=== PATIENT | female | born 1965 | race Caucasian/White ===

== ENCOUNTER → 2017-03-20 | Outpatient (CLI) | payer MEDICARE ==
[~2017-03-20] MED LIST: ACET1TAB12 PO; ACET325T49 PO; ACHD5005 PO; ACID1TAB PO; ACYC400T PO; ALBU2.5V4 IH; ALBU8.5H2 IH; ALPR0.2550 PO; ALPR0.5T7 PO; AMIT25TA9 PO; AMOX500C2 PO; AMT10T PO; ASP325T PO; ASP81CT PO; ASPI-587 PO; BENZ100C18 PO; BUDE10.22 IH; BUTA1TAB46 PO; CEFU500T PO; CEFU500T63 PO; CLOB15OI2 TOP; CODE118S2 PO; CRAN1CAP7 PO; CRAN450C PO; CYCL10TA9 PO; ESCI20TA45 PO; ESCI5TAB PO; ESTROVEN; FAMO20TA5 PO; FENO145T2 PO; FLUO20CA25 PO; FLUT1DIS26 IH; HCT25T PO; HYDR-2997 PO; HYDR-3583 PO; HYDR-3729 PO; HYDR25CA5 PO; HYDR25TA4 PO; IBP800T PO; LD5O35 TOP; LEVO500T2 PO; LEVO500T69 PO; LINA290C PO; LISI10TA2; LISI10TA2 PO; LISI20TA PO; LISI40TA PO; METH4TAB PO; METO-272 PO; MNTL10T PO; MPR22T TP; MTF500T; MULT-974 PO; MULT1CAP27 PO; MYCO500T3 PO; NAPR-243 PO; NIAC1CAP PO; NITR-65 PO; OMEG-9 PO; OMEP-10 PO; OMEP20CA12 PO; OMEP40CA36 PO; ONDA-42 SL; ONDA4TAB10 PO; ONDAN4ODT PO; OXYC-12 PO; OXYC-465 PO; PAMA50TA PO; PANT40TA3 PO; PRD20T PO; PRED5TAB PO; PRM25T PO; RT-ALBUINH IH; SCR1T1 PO; SIMV20TA3 PO; SULF-222 PO; TACR30OI4 TOP; TRAM-21 PO; TRAM50TA2 PO; TRUBIOTICS PO; VITA100033 PO; ZLP10T PO; ZOLP5TAB7 PO
--- NOTE | 2017-03-20 17:38 | Diagnostic Imaging Report ---
Multiple views of the right shoulder. INDICATION: Right shoulder pain. FINDINGS: There is no fracture, dislocation, or radiopaque foreign body seen. The acromioclavicular joint demonstrates osteophyte formation superiorly. No degenerative changes at the glenohumeral joint seen. IMPRESSION: No acute process. Dictated by: Dictated on workstation # [id number]
== END ==
LOC: RAD 15:07
PROVIDERS: ATTEND Nurse Practitioner Family
DX: M25.511 Pain in right shoulder (principal)
CPT/HCPCS: 73030

== ENCOUNTER 2017-04-04 20:57 | Emergency (ER) | payer MEDICARE ==
[~2017-04-04] VITALS: Ht 165.1 cm; Wt 111.6 kg
[2017-04-04] MEDS ORDERED: MORP-34 (21:25)
[2017-04-04] MEDS ORDERED: NS IV 1000 ML 1,000 ML IV ONE (21:37)
[2017-04-04] MEDS ORDERED: KETOROLAC 30 MG/ML VIAL ONE (21:41)
[2017-04-04] MEDS ORDERED: [UNRECOGNIZED DRUG - OTHER] (21:45)
[2017-04-04] MEDS ORDERED: KETOROLAC 15 MG/ML VIAL IVP ONE (21:45)
[2017-04-04] MEDS ORDERED: PROCHLORPERAZINE 10 MG/2ML INJ (COMPAZINE) IV ONE (21:45)
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
[2017-04-04 22:14] LABS: BASOPHILS % (AUTO) 0 % (0-10); EOSINOPHILS % (AUTO) 0 % (0-10); LYMPHOCYTES # (AUTO) 1.9 X 10^3 (1.0-4.0); LYMPHOCYTES % (AUTO) 23 % (12-44); MEAN CORPUSCULAR HEMOGLOBIN 27 PG (25-34); MEAN CORPUSCULAR HGB CONC 33 G/DL (32-36); MEAN CORPUSCULAR VOLUME 83 FL (80-99); MEAN PLATELET VOLUME 9.2 FL (7.4-10.4); MONOCYTES # (AUTO) 0.4 X 10^3 (0.0-1.0); MONOCYTES % (AUTO) 4 % (0-12); NEUTROPHILS # (AUTO) 6.1 X 10^3 (1.8-7.8); NEUTROPHILS % (AUTO) 73 % (42-75); PLATELET COUNT 464 10^3/uL (130-400); RED BLOOD COUNT 5.72 10^6/uL (4.35-5.85); RED CELL DISTRIBUTION WIDTH 13.6 % (10.0-14.5); WHITE BLOOD COUNT 8.4 10^3/uL (4.3-11.0)
[2017-04-04 22:24] LABS: BILIRUBIN,URINE NEGATIVE (NEGATIVE); KETONES,URINE NEGATIVE (NEGATIVE); LEUKOCYTE ESTERASE ,URINE 1+ (NEGATIVE); NITRITE,URINE NEGATIVE (NEGATIVE); PH,URINE 6.5 (5-9); PROTEIN,URINE 4+ (NEGATIVE); UROBILINOGEN,URINE NORMAL (NORMAL)
[2017-04-04 22:27] LABS: ALANINE AMINOTRANSFERASE 50 U/L (0-55); ALBUMIN 4.8 GM/DL (3.2-4.5); ANION GAP 16 MMOL/L (5-14); ASPARTATE AMINO TRANSFERASE 25 U/L (5-34); BILIRUBIN,TOTAL 0.7 MG/DL (0.1-1.0); BLOOD UREA NITROGEN 15 MG/DL (7-18); BUN/CREATININE RATIO 21; CALCIUM 11.1 MG/DL (8.5-10.1); CARBON DIOXIDE 23 MMOL/L (21-32); CHLORIDE 102 MMOL/L (98-107); CREATININE SERUM 0.71 MG/DL (0.60-1.30); GFR ESTIMATED > 60; GLUCOSE 127 MG/DL (70-105); LIPASE 13 U/L (8-78); MAGNESIUM 1.9 MG/DL (1.8-2.4); POTASSIUM 3.8 MMOL/L (3.6-5.0); SODIUM 141 MMOL/L (135-145); TOTAL PROTEIN 8.6 GM/DL (6.4-8.2)
[2017-04-04] MEDS ORDERED: METOCLOPRAMIDE INJ 10 MG/2 ML (REGLAN) IVP ONE (23:00)
[2017-04-04] MEDS ORDERED: KETOROLAC 30 MG/ML VIAL IVP ONE ×2 (23:00→23:30)
[2017-04-04] MEDS ORDERED: DEXAMETHASONE 4 MG/ML SDV (DECADRON) IV ONE (23:00)
[2017-04-04] MEDS ORDERED: diphenhydrAMINE 50 MG/ML INJ (BENADRYL) IVP ONE (23:00)
[2017-04-04] MEDS ORDERED: ACETAMINOPHEN 500 MG TAB (TYLENOL) PO ONE (23:00)
[2017-04-05] MEDS ORDERED: PROM25TA14 PO (00:25)
[2017-04-05 00:32] VITALS: BP 167/100
--- OUTSIDE RECORDS SUMMARY | 2017-04-05 04:17 | XMS REPORT | Clinical Summary ---
Author Author [facility] Organization [facility] Address Unknown Phone Unavailable Care Team Providers Care Claims Customer Service Representative Name Role Phone PCP Unavailable Source Comments Some departments are not documenting in the electronic medical record. If you do not see the information that you expected, contact Release of Information in the Health Information Management department at [phone] for further assistance in locating additional records.[facility] Allergies Active Allergy Reactions Severity Noted Date Comments Zolpidem HALLUCINATIONS High 07/13/2015 Adhesive Tape (Rosins) SEE COMMENTS Low 04/27/2015 Like a chemical burn, but able to use tegaderm Venom-Honey Bee SEE COMMENTS Low 03/30/2015 Paralysis Clindamycin DIARRHEA Low 11/17/2015 Rectal bleeding Tetracycline SEE COMMENTS Low 03/30/2015 " Started with hives and then I was in a coma for 10 days" ALL CYCLINES Current Medications Prescription Sig. Disp. Refills Start End Date Status Date amitriptyline (ELAVIL) 25 Take 25 mg by mouth at Active mg tablet bedtime daily. linaclotide(+) (LINZESS) Take 290 mcg by mouth Active 290 mcg capsule daily 30 minutes before breakfast. escitalopram oxalate Take 20 mg by mouth Active (LEXAPRO) 20 mg tablet daily. Vitamin C-Vitamin E Take 1 Cap by mouth Active (CRANBERRY CONCENTRATE) daily. cap vitamin E 100 unit Take 100 Units by mouth Active capsule daily. ALPRAZolam (XANAX) 0.5 mg Take 0.5 mg by mouth at Active tablet bedtime as needed. ondansetron (ZOFRAN ODT) Take by mouth every 8 Active 4 mg rapid dissolve hours as needed for tablet Nausea. oxyCODONE-acetaminophen Take 1 Tab by mouth every Active (PERCOCET) 10-325 mg 4 hours as needed tablet docusate (COLACE) 100 mg Take 100 mg by mouth Active capsule twice daily as needed for Constipation. tacrolimus(+) (PROTOPIC) Apply to affected area Active 0.1 % topical ointment three times daily. Twice a day every other day. metoprolol (LOPRESSOR) 25 Take 25 mg by mouth twice Active mg tablet daily. lisinopril (PRINIVIL, Take 40 mg by mouth Active ZESTRIL) 40 mg tablet daily. clobetasol (TEMOVATE) APPLY TO AFFECTED AREA 60 g 3 08/25/20 Active 0.05 % topical ointment TWICE DAILY. APPLY TO 15 OPEN WOUNDS EVERY OTHER DAY ALTERNATING WITH TACROLIMUS melatonin 3 mg tab Take 3 mg by mouth as Active Needed. 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 Take on an 17 empty stomach. lidocaine(+) 5 % oint APPLY OINTMENT 50 g 3 02/14/20 Active topical ointment EXTERNALLY TWICE DAILY 17 Active Problems Problem Noted Date Adenomatous polyp of duodenum 10/01/2015 Overview: Next EGD in 3 years, 2019 (letter sent to pt and PCP, Manisha Escobar MD) Irritable bowel syndrome 07/04/2015 Pyoderma gangrenosum 07/04/2015 Depression 07/04/2015 Anxiety 07/04/2015 HTN (hypertension) 07/04/2015 Resolved Problems Problem Noted Date Resolved Date Fever of unknown origin 07/04/2015 07/06/2015 Nausea vomiting and diarrhea 07/04/2015 07/06/2015 Fever of unknown origin (FUO) 07/04/2015 07/06/2015 Encounters Date Type Specialty Care Team Description 02/13/2017 Refill Dermatology Johan Harrington MD 01/18/2017 Hospital Johan Harrington Other 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) Encounter drug therapy 01/18/2017 Office Visit Dermatology Johan Harrington, Encounter for long-term MD (current) use of medications (Primary Dx);Pyoderma gangrenosum from Last 3 Months Family History Medical History Relation Name Comments Melanoma Father Melanoma Maternal Grandmother Basal Cell Carcinoma Mother Relation Name Status Comments Father Maternal Grandmother Mother Social History Tobacco Use Types Packs/Day Years Used Date Never Smoker Sex Assigned at Date Recorded Not on file Last Filed Vital Signs Vital Sign Reading Time Taken Blood Pressure 114/59 11/23/2015 3:28 PM CDT Pulse 73 11/23/2015 3:28 PM CDT Temperature 37.2 C (98.9 F) 11/17/2015 10:21 AM CDT Respiratory Rate 16 11/17/2015 10:21 AM CDT Oxygen Saturation 93% 11/23/2015 3:28 PM CDT Inhaled Oxygen - - Concentration Weight 112 kg (247 lb) 01/18/2017 10:26 AM CDT Height 162.6 cm (5' 4") 01/18/2017 10:26 AM CDT Body Mass Index 42.4 01/18/2017 10:26 AM CDT Plan of Treatment Health Maintenance Due Date Last Done Comments PHYSICAL (COMPREHENSIVE) 1974 EXAM PERTUSSIS VACCINE 1978 TETANUS VACCINE 1984 CERVICAL CANCER SCREENING 1997 BREAST CANCER SCREENING 2007 INFLUENZA VACCINE 04/28/2017 Results * CBC AND DIFF (01/18/2017 11:18 AM) Component Value Ref Range White Blood Cells 6.3 4.5 - 11.0 K/UL RBC 5.14 (H) 4.0 - 5.0 M/UL Hemoglobin 14.1 12.0 - 15.0 GM/DL Hematocrit 42.3 36 - 45 % MCV 82.3 80 - 100 FL MCH 27.4 26 - 34 PG MCHC 33.2 32.0 - 36.0 G/DL RDW 14.1 11 - 15 % Platelet Count 345 150 - 400 K/UL MPV 7.5 7 - 11 FL Neutrophils 41 41 - 77 % Lymphocytes 49 (H) 24 - 44 % Monocytes 8 4 - 12 % Eosinophils 2 0 - 5 % Basophils 0 0 - 2 % Absolute Neutrophil Count 2.60 1.8 - 7.0 K/UL Absolute Lymph Count 3.10 1.0 - 4.8 K/UL Absolute Monocyte Count 0.50 0 - 0.80 K/UL Absolute Eosinophil Count 0.10 0 - 0.45 K/UL Absolute Basophil Count 0.00 0 - 0.20 K/UL Specimen Performing Laboratory [facility] [address] [place] [address] * COMPREHENSIVE METABOLIC PANEL (01/18/2017 11:18 AM) Component Value Ref Range Sodium 137 137 - 147 MMOL/L Potassium 3.9 3.5 - 5.1 MMOL/L Chloride 100 98 - 110 MMOL/L Glucose 100 70 - 100 MG/DL Blood Urea Nitrogen 10 7 - 25 MG/DL Creatinine 0.56 0.4 - 1.00 MG/DL Calcium 9.8 8.5 - 10.6 MG/DL Total Protein 7.1 6.0 - 8.0 G/DL Total Bilirubin 0.5 0.3 - 1.2 MG/DL Albumin 4.2 3.5 - 5.0 G/DL Alk Phosphatase 83 25 - 110 U/L AST (SGOT) 20 7 - 40 U/L CO2 28 21 - 30 MMOL/L ALT (SGPT) 28 7 - 56 U/L Anion Gap 9 3 - 12 eGFR Non >60 >60 mL/min Comment: The eGFR is not validated for use in drug dosing adjustments. Continue to use estimated creatinine clearance per dosing reference text. Please contact the Clinical Pharmacist for questions. eGFR >60 >60 mL/min Comment: The eGFR is not validated for use in drug dosing adjustments. Continue to use estimated creatinine clearance per dosing reference text. Please contact the Clinical Pharmacist for questions. Specimen Performing Laboratory [facility] [address] [place] [address] from Last 3 Months
--- OUTSIDE RECORDS SUMMARY | 2017-04-05 04:17 | XMS REPORT | Encounter Summary ---
Author Author [facility] Organization [facility] Address Unknown Phone Unavailable Care Team Providers Care Log Cooker Name Role Phone PCP Unavailable Reason for Visit * Reason Comments Medication Refill Encounter Details Date Type Department Care Team Description 02/13/2017 Refill [facility] Johan Harrington, Physicians - Internal MD Medicine [address] [place] [address] [address] [phone] [place] [address] Social History Tobacco Use Types Packs/Day Years Used Date Never Smoker Sex Assigned at Date Recorded Not on file as of this encounter Functional Status Functional Status Response Date of Assessment Does the patient have a hearing impairment: No 07/04/2015 as of this encounter Plan of Treatment Not on fileas of this encounter Visit Diagnoses Not on filein this encounter
--- OUTSIDE RECORDS SUMMARY | 2017-04-05 04:17 | XMS REPORT | Encounter Summary ---
Author Author [facility] Organization [facility] Address Unknown Phone Unavailable Care Team Providers Care Medical Transcription Supervisor Name Role Phone PCP Unavailable Reason for Visit * Reason Comments Skin Problem Encounter Details Date Type Department Care Team Description 01/18/2017 Office Visit [facility] Johan Harrington, Encounter for long-term Physicians - Internal MD (current) use of Medicine [address] medications (Primary [address] MED [place] [address] Dx);Pyoderma [place]ren[place] [address] [address] [phone] [place] [address] Social History Tobacco Use Types Packs/Day Years Used Date Never Smoker Sex Assigned at Date Recorded Not on file as of this encounter Last Filed Vital Signs Vital Sign Reading Time Taken Blood Pressure - - Pulse - - Temperature - - Respiratory Rate - - Oxygen Saturation - - Inhaled Oxygen - - Concentration Weight 112 kg (247 lb) 01/18/2017 10:26 AM CDT Height 162.6 cm (5' 4") 01/18/2017 10:26 AM CDT Body Mass Index 42.4 01/18/2017 10:26 AM CDT in this encounter Functional Status Functional Status Response Date of Assessment Does the patient have a hearing impairment: No 07/04/2015 as of this encounter Instructions * Patient Instructions - Tammy Farrell - 01/18/2017 10:40 AM CDT [employer] for coupon for cellcept in this encounter Progress Notes * Johan Harrington MD - 01/18/2017 10:39 AM CDT Formatting of this note may be different from the original. Date of Service: 01/18/2017 Subjective: Ehlam Skaggs is a 51 y.o. female. History of Present Illness Return patient 1. Pyoderma gangranosum Interval history - New lesion on L breast - present for about 3-4 weeks, patient thinks it was a bug bite initially - Currently taking Cellcept 1.5g PO BID -- tolerating well w/o adverse effects - Old lesions are mostly healed - Currently alternating protopic TID and clobetasol TID every other day to all resolving/active lesions - Patient has history of bicep tear- R arm, patient is having pain similar to previous injury and will see orthopedics to assess this pain, patient is worried about having surgery and what this could do with PG hx. 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 Potts in [place], [place] (wound care) - pt reports that several of the lesions are in areas of trauma (pathergy) - pt discharged mid June 2015 for evaluation of fever of unknown origin workup - evaluated by ID and rheumatology who found no source for her fever - though did have positive Bartonella serology, with work up unclear for acute vs. past infection - pt received antibiotics while in house but was discharged home without antibiotics - No hx of TB or other serious infections - No hx of autoimmune diseases such as SLE - has had a full rheumatologic panel which was negative - No hx of liver, kidney, heart or neuro disease including MS - No personal or family hx of malignancy. No weight loss, night sweats - No hx of HIV or Hepatitis B/C. - No recent fever >101 - Pt had colonoscopy which showed no evidence of IBD; currently with a working dx of IBS - CBC, CMP WNL in 03/2016 2. H/o Bartonella infection - resolved per ID - Treated by [facility] with Azithromycin. - patient does have cats at home, though not much history of cat scratches - Bartonella henselae IgM negative in 06/2015 and 08/2015 - Bartonella henselae IgG=1:256 in 06/2015 and >=1:1024 in 08/2015 (RR <1:128) - Evaluation for cardiac and eye involvement were negative per patient. 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 HENT: Negative for congestion, mouth sores and sore throat. Eyes: Negative for pain, redness, itching and visual disturbance. Respiratory: Negative for cough and shortness of breath. Cardiovascular: Negative for palpitations and leg swelling. Gastrointestinal: Negative for nausea, vomiting, abdominal pain, diarrhea and blood in stool. Genitourinary: Negative for hematuria and difficulty urinating. Musculoskeletal: Negative for myalgias and arthralgias. Skin: Negative for color change, pallor, rash and wound. Neurological: Negative for dizziness and seizures. Hematological: Does not bruise/bleed easily. Psychiatric/Behavioral: Negative for confusion and dysphoric mood. The patient is not nervous/anxious. Objective: ALPRAZolam (XANAX) 0.5 mg tablet Take 0.5 mg by mouth at bedtime as needed. amitriptyline (ELAVIL) 25 mg tablet Take 25 mg by mouth at bedtime daily. azithromycin (ZITHROMAX) 250 mg tablet Take 2 tabs by mouth on day 1, followed by 1 tab by mouth daily for 13 days. Indications: Bartonella infection clobetasol (TEMOVATE) 0.05 % topical ointment APPLY TO AFFECTED AREA TWICE DAILY. APPLY TO OPEN WOUNDS EVERY OTHER DAY ALTERNATING WITH TACROLIMUS docusate (COLACE) 100 mg capsule Take 100 mg by mouth twice daily as needed for Constipation. escitalopram oxalate (LEXAPRO) 20 mg tablet Take 20 mg by mouth daily. lidocaine(+) 5 % oint topical ointment APPLY OINTMENT TO AFFECTED AREA TWICE DAILY linaclotide(+) (LINZESS) 290 mcg capsule Take 290 mcg by mouth daily 30 minutes before breakfast. lisinopril (PRINIVIL, ZESTRIL) 40 mg tablet Take 40 mg by mouth daily. melatonin 3 mg tab Take 3 mg by mouth as Needed. metoprolol (LOPRESSOR) 25 mg tablet Take 25 mg by mouth twice daily. morphine IR (MSIR) 15 mg tablet Take 15 mg by mouth every 4 hours as needed for Pain mycophenolate mofetil (CELLCEPT) 500 mg tablet Take 3 Tabs by mouth twice daily. Take on an empty stomach. ondansetron (ZOFRAN ODT) 4 mg rapid dissolve tablet Take by mouth every 8 hours as needed for Nausea. oxyCODONE-acetaminophen (PERCOCET) 10-325 mg tablet Take 1 Tab by mouth every 4 hours as needed tacrolimus(+) (PROTOPIC) 0.1 % topical ointment Apply to affected area three times daily. Twice a day every other day. Vitamin C-Vitamin E (CRANBERRY CONCENTRATE) cap Take 1 Cap by mouth daily. vitamin E 100 unit capsule Take 100 Units by mouth daily. Filed Vitals: 01/18/17 1026 Height: 162.6 cm (64") Weight: 112.038 kg (247 lb) Body mass index is 42.38 kg/(m^2). Physical Exam Areas Examined (all normal unless noted below): Head/Face Neck Chest R upper ext L upper ext R lower ext L lower ext Pertinent findings include: Oval hypopigmented scars on arms, legs, abdomen Superficial 3 cm ulcer on left breast Assessment and Plan: 1. Pyoderma Gangrenosum, much improved - Continue Rx Cellcept 1.5g BID (refill given today) - CMP and CBC ordered today - Continue Protopic 0.1% ointment BID alternating with clobetasol 0.05% ointment BID, can use under occlusion for better penetration - F/U with ortho for Right shoulder pain, try non invasive measures before considering surgery RTC 3 months In the presence of Johan Harrington MD, I have taken down these notes, Kisha Adames. 01/18/2017 10:40 AM * Loly Worthy LPN - 01/18/2017 10:26 AM CDT Formatting of this note may be different from the original. Date of Service: 01/18/2017 Subjective: Elham Skaggs is a 51 y.o. female. History of Present Illness Review of Systems Constitutional: Negative for fever, diaphoresis, appetite change, fatigue and unexpected weight change. HENT: Negative for congestion, mouth sores and sore throat. Eyes: Negative for pain, redness, itching and visual disturbance. Respiratory: Negative for cough and shortness of breath. Cardiovascular: Negative for palpitations and leg swelling. Gastrointestinal: Negative for nausea, vomiting, abdominal pain, diarrhea and blood in stool. Genitourinary: Negative for hematuria and difficulty urinating. Musculoskeletal: Negative for myalgias and arthralgias. Skin: Negative for color change, pallor, rash and wound. Neurological: Negative for dizziness and seizures. Hematological: Does not bruise/bleed easily. Psychiatric/Behavioral: Negative for confusion and dysphoric mood. The patient is not nervous/anxious. Objective: ALPRAZolam (XANAX) 0.5 mg tablet Take 0.5 mg by mouth at bedtime as needed. amitriptyline (ELAVIL) 25 mg tablet Take 25 mg by mouth at bedtime daily. azithromycin (ZITHROMAX) 250 mg tablet Take 2 tabs by mouth on day 1, followed by 1 tab by mouth daily for 13 days. Indications: Bartonella infection clobetasol (TEMOVATE) 0.05 % topical ointment APPLY TO AFFECTED AREA TWICE DAILY. APPLY TO OPEN WOUNDS EVERY OTHER DAY ALTERNATING WITH TACROLIMUS docusate (COLACE) 100 mg capsule Take 100 mg by mouth twice daily as needed for Constipation. escitalopram oxalate (LEXAPRO) 20 mg tablet Take 20 mg by mouth daily. lidocaine(+) 5 % oint topical ointment APPLY OINTMENT TO AFFECTED AREA TWICE DAILY linaclotide(+) (LINZESS) 290 mcg capsule Take 290 mcg by mouth daily 30 minutes before breakfast. lisinopril (PRINIVIL, ZESTRIL) 40 mg tablet Take 40 mg by mouth daily. melatonin 3 mg tab Take 3 mg by mouth as Needed. metoprolol (LOPRESSOR) 25 mg tablet Take 25 mg by mouth twice daily. morphine IR (MSIR) 15 mg tablet Take 15 mg by mouth every 4 hours as needed for Pain mycophenolate mofetil (CELLCEPT) 500 mg tablet Take 3 Tabs by mouth twice daily. Take on an empty stomach. ondansetron (ZOFRAN ODT) 4 mg rapid dissolve tablet Take by mouth every 8 hours as needed for Nausea. oxyCODONE-acetaminophen (PERCOCET) 10-325 mg tablet Take 1 Tab by mouth every 4 hours as needed tacrolimus(+) (PROTOPIC) 0.1 % topical ointment Apply to affected area three times daily. Twice a day every other day. Vitamin C-Vitamin E (CRANBERRY CONCENTRATE) cap Take 1 Cap by mouth daily. vitamin E 100 unit capsule Take 100 Units by mouth daily. Filed Vitals: 01/18/17 1026 Height: 162.6 cm (64") Weight: 112.038 kg (247 lb) Body mass index is 42.38 kg/(m^2). Physical Exam Assessment and Plan: in this encounter Plan of Treatment Not on fileas of this encounter Results * COMPREHENSIVE METABOLIC PANEL (01/18/2017 11:18 AM) [...] Performing Laboratory [facility] [address] [place] [address] * CBC AND DIFF (01/18/2017 11:18 AM) [...] Performing Laboratory [facility] [address] [place] [address] in this encounter Visit Diagnoses Diagnosis Encounter for long-term (current) use of medications - Primary Encounter for long-term (current) use of other medications Pyoderma gangrenosum in this encounter
--- OUTSIDE RECORDS SUMMARY | 2017-04-05 04:17 | XMS REPORT | Encounter Summary ---
Author Author [facility] Organization [facility] Address Unknown Phone Unavailable Care Team Providers Care Mobile Device Engineer Name Role Phone PCP Unavailable Encounter Details Date Type Department Care Team Description 01/18/2017 [facility] Johan Harrington Other shelter (current) Encounter [address] [place] [address] [address] [place], [place] [id number] Social History Tobacco Use Types Packs/Day Years Used Date Never Smoker Sex Assigned at Date Recorded Not on file as of this encounter Functional Status Functional Status Response Date of Assessment Does the patient have a hearing impairment: No 07/04/2015 as of this encounter Medications at Time of Discharge Medication Sig. Disp. Refills Start Date End Date ALPRAZolam (XANAX) 0.5 mg Take 0.5 mg by mouth at tablet bedtime as needed. amitriptyline (ELAVIL) 25 Take 25 mg by mouth at mg tablet bedtime daily. azithromycin (ZITHROMAX) Take 2 tabs by mouth on 15 Tab 1 11/17/2015 250 mg tabletIndications: day 1, followed by 1 tab Bartonella infection by mouth daily for 13 days. Indications: Bartonella infection clobetasol (TEMOVATE) APPLY TO AFFECTED AREA 60 g 3 08/25/2015 0.05 % topical ointment TWICE DAILY. APPLY TO OPEN WOUNDS EVERY OTHER DAY ALTERNATING WITH TACROLIMUS docusate (COLACE) 100 mg Take 100 mg by mouth capsule twice daily as needed for Constipation. escitalopram oxalate Take 20 mg by mouth (LEXAPRO) 20 mg tablet daily. linaclotide(+) (LINZESS) Take 290 mcg by mouth 290 mcg capsule daily 30 minutes before breakfast. lisinopril (PRINIVIL, Take 40 mg by mouth ZESTRIL) 40 mg tablet daily. melatonin 3 mg tab Take 3 mg by mouth as Needed. metoprolol (LOPRESSOR) 25 Take 25 mg by mouth twice mg tablet daily. morphine IR (MSIR) 15 mg Take 15 mg by mouth every tablet 4 hours as needed for Pain mycophenolate mofetil Take 3 Tabs by mouth 180 Tab 3 12/15/2016 (CELLCEPT) 500 mg tablet twice daily. Take on an empty stomach. ondansetron (ZOFRAN ODT) Take by mouth every 8 4 mg rapid dissolve hours as needed for tablet Nausea. oxyCODONE-acetaminophen Take 1 Tab by mouth every (PERCOCET) 10-325 mg 4 hours as needed tablet tacrolimus(+) (PROTOPIC) Apply to affected area 0.1 % topical ointment three times daily. Twice a day every other day. Vitamin C-Vitamin E Take 1 Cap by mouth (CRANBERRY CONCENTRATE) daily. cap vitamin E 100 unit Take 100 Units by mouth capsule daily. lidocaine(+) 5 % oint APPLY OINTMENT TO 240 g 2 08/30/20162016 topical ointment AFFECTED AREA TWICE DAILY as of this encounter Plan of Treatment [...] Performing Laboratory [facility] [address] [place] [address] * CBC AND DIFF (01/18/2017 11:18 AM) [...] - 0.20 K/UL Specimen Performing Laboratory [facility] [address] [place] [address] in this encounter Visit Diagnoses Diagnosis Encounter for long-term (current) use of medications Encounter for long-term (current) use of other medications in this encounter Admitting Diagnoses Diagnosis Other shelter (current) drug therapy in this encounter
--- NOTE | 2017-04-05 06:09 | Diagnostic Imaging Report ---
INDICATION: Headache with nausea and vomiting. FINDINGS: The lung bases are clear. Surgical clips are present in the biliary fossa. There is no organomegaly. No pathologic calcifications are demonstrated. There are sutures over the mid abdomen consistent with previous ventral hernia repair. No pathologic calcifications are demonstrated. Hypertrophic bony changes noted L4 and L5 facets. Bowel gas pattern is normal. There is very little gas or stool within the colon. Stomach and small bowel are gasless as well. IMPRESSION: Essentially gasless abdomen which would raise suspicion for fluid-filled loops of bowel. No other abnormalities noted. Dictated by: Dictated on workstation # [id number]
== END 2017-04-05 00:32 | disposition home or self-care (01) ==
LOC: EDUNIT# 20:57 → ER 20:58
DX: G43.909 Migraine, unspecified, not intractable, without status migrainosus (principal); R19.7 Diarrhea, unspecified; R11.2 Nausea with vomiting, unspecified; F41.9 Anxiety disorder, unspecified; F32.9 Major depressive disorder, single episode, unspecified; E11.9 Type 2 diabetes mellitus without complications; K21.9 Gastro-esophageal reflux disease without esophagitis; J45.909 Unspecified asthma, uncomplicated; Z90.49 Acquired absence of other specified parts of digestive tract; Z90.710 Acquired absence of both cervix and uterus; Z87.59 Personal history of other complications of pregnancy, childbirth and the puerperium
CPT/HCPCS: 36415; 74020; 80053; 81000; 83605; 83690; 83735; 85025; 96374; 96375

== ENCOUNTER 2018-02-08 14:36 | Emergency (ER) | payer MEDICARE ==
[~2018-02-08] VITALS: Ht 165.1 cm; Wt 111.1 kg
[~2018-02-08 14:36] MED LIST changes: -METO-272 PO; +METO-370 PO; +MORP-34; +PROM25TA14 PO; +[UNRECOGNIZED DRUG - OTHER]
[2018-02-08 16:54] LABS: BASOPHILS % (AUTO) 1 % (0-10); EOSINOPHILS # (AUTO) 0.1 10^3/uL (0.0-0.3); EOSINOPHILS % (AUTO) 1 % (0-10); HEMATOCRIT 43 % (40-54); HEMOGLOBIN 14.3 G/DL (13.3-17.7); LYMPHOCYTES # (AUTO) 1.7 X 10^3 (1.0-4.0); LYMPHOCYTES % (AUTO) 36 % (12-44); MEAN CORPUSCULAR HEMOGLOBIN 27 PG (25-34); MEAN CORPUSCULAR HGB CONC 33 G/DL (32-36); MEAN CORPUSCULAR VOLUME 83 FL (80-99); MEAN PLATELET VOLUME 9.3 FL (7.4-10.4); MONOCYTES # (AUTO) 0.4 X 10^3 (0.0-1.0); MONOCYTES % (AUTO) 8 % (0-12); NEUTROPHILS # (AUTO) 2.7 X 10^3 (1.8-7.8); NEUTROPHILS % (AUTO) 55 % (42-75); PLATELET COUNT 351 10^3/uL (130-400); RED BLOOD COUNT 5.23 10^6/uL (4.35-5.85); RED CELL DISTRIBUTION WIDTH 13.8 % (10.0-14.5); WHITE BLOOD COUNT 4.8 10^3/uL (4.3-11.0)
[2018-02-08 17:16] LABS: ALANINE AMINOTRANSFERASE 20 U/L (0-55); ALKALINE PHOSPHATASE 93 U/L (40-136); BILIRUBIN,TOTAL 0.8 MG/DL (0.1-1.0); BUN/CREATININE RATIO 13; CALCIUM 9.6 MG/DL (8.5-10.1); CARBON DIOXIDE 26 MMOL/L (21-32); CHLORIDE 105 MMOL/L (98-107); CREATININE SERUM 0.67 MG/DL (0.60-1.30); GFR ESTIMATED > 60; GLUCOSE 119 MG/DL (70-105); POTASSIUM 4.1 MMOL/L (3.6-5.0); SALICYLATE < 5.0 MG/DL (5.0-20.0); SODIUM 139 MMOL/L (135-145); TOTAL PROTEIN 6.7 GM/DL (6.4-8.2)
[2018-02-08 17:17] LABS: ACETAMINOPHEN < 10 UG/ML (10-30)
--- NOTE | 2018-02-08 17:27 | Diagnostic Imaging Report ---
EXAMINATION: CT brain without contrast, 02/08/2018. TECHNIQUE: Multiple contiguous axial images were obtained through the brain without the use of intravenous contrast. INDICATION: Memory loss trouble. COMPARISON: 07/01/2015. FINDINGS: Prominence and partial calcification of the pineal gland noted and stable from previous imaging. No acute hemorrhage or infarct is seen. No mass, mass effect, or midline shift is noted. There is no hydrocephalus. Mild chronic ischemic disease is seen. Calvarium is intact. IMPRESSION: 1. Stable CT brain with no acute abnormality. Dictated by: Dictated on workstation # [id number]
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
[2018-02-08 18:26] LABS: BILIRUBIN,URINE NEGATIVE (NEGATIVE); CLARITY,URINE SLIGHTLY CLOUDY; COLOR,URINE YELLOW; GLUCOSE, URINE (UA) NEGATIVE (NEGATIVE); KETONES,URINE NEGATIVE (NEGATIVE); LEUKOCYTE ESTERASE ,URINE NEGATIVE (NEGATIVE); NITRITE,URINE NEGATIVE (NEGATIVE); PH,URINE 8 (5-9); PROTEIN,URINE NEGATIVE (NEGATIVE); UROBILINOGEN,URINE NORMAL (NORMAL)
[2018-02-08 18:40] LABS: BACTERIA,URINE FEW /HPF; SQUAMOUS EPITHELIAL CELL,UR >50 /HPF
[2018-02-08 18:50] LABS: AMPHETAMINE SCREEN, URINE NEGATIVE (NEGATIVE); BARBITURATE SCREEN URINE NEGATIVE (NEGATIVE); BENZODIAZEPINES SCREEN URINE POSITIVE (NEGATIVE); CANNABINOID SCREEN, URINE NEGATIVE (NEGATIVE); COCAINE SCREEN URINE NEGATIVE (NEGATIVE); METHADONE STAT NEGATIVE (NEGATIVE); METHAMPHETAMINE SCREEN URINE S NEGATIVE (NEGATIVE); OPIATE SCREEN URINE POSITIVE (NEGATIVE); OXYCODONE STAT NEGATIVE (NEGATIVE); TRICYCLIC ANTIDEPRESSANTS SCRE POSITIVE (NEGATIVE)
[2018-02-08 18:51] LABS: PROPOXYPHENE STAT NEGATIVE (NEGATIVE)
[2018-02-08 19:24] VITALS: BP 139/74
== END 2018-02-08 19:24 | disposition home or self-care (01) ==
LOC: EDUNIT# 14:36 → EDSEX 14:38 → ER 14:38
DX: G45.4 Transient global amnesia (principal); J45.909 Unspecified asthma, uncomplicated; I10 Essential (primary) hypertension; G43.909 Migraine, unspecified, not intractable, without status migrainosus; F32.9 Major depressive disorder, single episode, unspecified; K21.9 Gastro-esophageal reflux disease without esophagitis; E11.9 Type 2 diabetes mellitus without complications; F41.9 Anxiety disorder, unspecified; Z82.49 Family history of ischemic heart disease and other diseases of the circulatory system; Z90.89 Acquired absence of other organs; Z88.1 Allergy status to other antibiotic agents; Z88.0 Allergy status to penicillin; Z79.51 Long term (current) use of inhaled steroids; Z87.440 Personal history of urinary (tract) infections; Z87.19 Personal history of other diseases of the digestive system; Z90.49 Acquired absence of other specified parts of digestive tract; Z87.59 Personal history of other complications of pregnancy, childbirth and the puerperium; Z90.710 Acquired absence of both cervix and uterus; Z98.51 Tubal ligation status
CPT/HCPCS: 36415; 70450; 80053; 80306; 80320; 80329; 81000; 84443; 85025; 93005

== ENCOUNTER → 2018-03-20 | Outpatient (CLI) | payer MEDICARE ==
--- NOTE | 2018-03-20 12:07 | Diagnostic Imaging Report ---
PROCEDURE: MR imaging of the brain without contrast. TECHNIQUE: Multiplanar, multisequence MR imaging of the brain was performed without contrast. INDICATION: Altered mental status, hallucinations. COMPARISON: No priors for direct comparison. The study however is correlated with CT 02/08/2018. FINDINGS: There are no foci of abnormal diffusion restriction. There are no findings of acute or chronic intracranial hemorrhage. Hyperostosis frontalis interna unchanged when correlated with previous CT is a chronic finding. No acute-appearing abnormality. Brainstem, posterior fossa, and basilar cisterns unremarkable. The midline structures are nondisplaced. No evidence for focal or generalized cerebral edema. No findings of elevated pressures. There is no suspicious white matter disease. 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 Normal appearance of the brain. No acute-appearing abnormality. Dictated by: Dictated on workstation # [id number]
== END ==
LOC: RAD 10:24
PROVIDERS: ATTEND Nurse Practitioner Family
DX: F05 Delirium due to known physiological condition (principal); R44.3 Hallucinations, unspecified; R41.82 Altered mental status, unspecified
CPT/HCPCS: 70551

== ENCOUNTER 2019-05-03 10:51 | Emergency (ER) | payer MEDICARE ==
[~2019-05-03] VITALS: Ht 165.1 cm; Wt 98.0 kg
--- NOTE | 2019-05-03 11:51 | ED Lower Extremity ---
General Chief Complaint: Trauma-Non Activation Stated Complaint: FALL Nursing Triage Note: Pt ambulates to FT2 with C/O bilat knee pain after slipping and falling to knees approx 1030 this am. Pt rates 7/10 at this time. Pt reports having knee surg on left knee in 2016 and anticipates surg on right knee in the next month. Pt uses a cane on a daily basis. Nursing Sepsis Screen: No Definite Risk Source: patient Exam Limitations: no limitations History of Present Illness Date Seen by Provider: May 03, 2019 Time Seen by Provider: 11:48 Initial Comments To ER with reports of bilateral knee pain after slipping and falling about 10:[address] [facility]. She has knee replacement scheduled next month on the right knee. History of pyoderma gangrenosum. She is on morphine daily. Not sure why she fell. Onset: just prior to arrival Severity: moderate Pain/Injury Location: bilateral knee Modifying Factors: Worse With Movement Allergies and Home Medications Allergies Coded Allergies: Tetracyclines (Verified Allergy, Unknown, 10/15/09) azithromycin (Verified Allergy, Unknown, 01/23/14) Uncoded Allergies: "CYCLINES" (Allergy, Mild, 10/13/09) Home Medications Albuterol Sulfate 8.5 Gm Hfa.aer.ad, 2-4 PUFF IH Q4H PRN for SHORTNESS OF BREATH Prescribed by: ZAC ROBLERO on 02/22/16 1210 Albuterol Sulfate 2.5 Mg/3 Ml Vial.neb, 2.5 MG IH Q4H Every 4 hrs scheduled x 24 hours. Every 2 hrs as needed for SOA Prescribed by: ZAC ROBLERO on 02/22/16 1210 Alprazolam 0.5 Mg Tablet, 0.5 MG PO Q6H PRN for ANXIETY, (Reported) Amitriptyline HCl 25 Mg Tablet, 25 MG PO HS, (Reported) Escitalopram Oxalate 20 Mg Tablet, 20 MG PO HS, (Reported) Hydrochlorothiazide 25 Mg Tablet, 25 MG PO DAILY, (Reported) Linaclotide 290 Mcg Capsule, 290 MCG PO DAILY, (Reported) Lisinopril 40 Mg Tablet, 40 MG PO DAILY, (Reported) Metoprolol Succinate 50 Mg Tab.er.24h, 50 MG PO DAILY, (Reported) Ondansetron HCl 4 Mg Tablet, 4 MG PO Q4H PRN for NAUSEA, (Reported) Oxycodone HCl/Acetaminophen 1 Each Tablet, 1 TAB PO QID, (Reported) Pantoprazole Sodium 40 Mg Tablet.dr, 40 MG PO DAILY, (Reported) Patient Home Medication List Home Medication List Reviewed: Yes Review of Systems Constitutional: see HPI EENTM: see HPI Respiratory: no symptoms reported Cardiovascular: no symptoms reported Genitourinary: no symptoms reported Musculoskeletal: see HPI Skin: no symptoms reported Psychiatric/Neurological: No Symptoms Reported Past Uuckpqg-Exxyye-Jxxinn Hx Patient Social History Alcohol Use: Rarely Uses Recreational Drug Use: No Smoking Status: Never a Smoker 2nd Hand Smoke Exposure: No Recent Foreign Travel: No Contact w/Someone Who Travel: No Recent Infectious Disease Expo: No Recent Hopitalizations: No Physical Abuse: No Sexual Abuse: No Mistreated: No Fear: No Immunizations Up To Date Tetanus Booster (TDap): Less than 5yrs Date of Pneumonia Vaccine: Apr 28, 2012 Date of Influenza Vaccine: Jun 02, 2015 Seasonal Allergies Seasonal Allergies: No Past Medical History Surgeries: Yes (SPINAL LIPOMAS REMOVED, ABD ADHESIONS, abdomnalnecrotic tissue debrided) Abdominal, Appendectomy, Section, Ear Surgery, Gallbladder, Hysterectomy, Oophorectomy, Orthopedic, Tubal Ligation Respiratory: Yes Asthma, Chronic Bronchitis Cardiac: Yes Hypertension Neurological: Yes Headaches /Migraines 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 Disorders: No Female 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 Disorders: Denies [employer] History: Hysterectomy Genitourinary: Yes Kidney Infection Gastrointestinal: Yes (INCARCERATED HERNIA) Abdominal Hernia, Gastroesophageal Reflux, Chronic Diarrhea, Ulcer, Cirrhosis, Irritable Bowel Musculoskeletal: Yes (BUNIONECTOMY,HAMMER TOE REPAIR, L KNEE) Arthritis, Chronic Back Pain Endocrine: No Diabetes, Non-Insulin dep HEENT: No Loss of Vision: Denies Hearing Impairment: Denies Cancer: No Psychosocial: Yes Anxiety, Depression Integumentary: Yes (pyodermic gangrenosum, 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) Blood Disorders: Yes (monoclonal gammopathy) Family Medical History Cancer 19 FATHER, (PROSTATE CANCER) Family history: Diabetes mellitus G8 BROTHER Hearing loss G8 SISTER Heart disease 19 MOTHER (STENTS) Heart Disease, Cancer, Diabetes, Hypertension Physical Exam Vital Signs Vital Signs - First Documented 05/03/19 11:34 Temp 97.2 Pulse 72 Resp 18 B/P (MAP) 107/47 (67) Pulse Ox 98 O2 Delivery Room Air Capillary Refill : Less Than 3 Seconds Height, Weight, BMI Height: 5'5.00" Weight: 216lbs. 0.0oz. 97.399491av; BMI Method:Stated General Appearance: WD/WN, no apparent distress HEENT: PERRL/EOMI, normal ENT inspection Neck: non-tender, full range of motion Respiratory: normal breath sounds, no respiratory distress, no accessory muscle use Gastrointestinal: normal bowel sounds, non tender Hips: bilateral hip non-tender, bilateral hip normal inspection, bilateral hip normal range of motion Legs: bilateral leg non-tender, bilateral leg normal inspection, bilateral leg normal range of motion Knees: right knee other (purplish ecchymosis to the lateral aspect of the distal femur on the right, to the anterior knee bilaterally there is a normal appearance without swelling or deformity abrasion or ecchymosis. She also has an old ecchymosis yellowish in color to the posterolateral right shoulder.) Ankles: bilateral ankle non-tender, bilateral ankle normal inspection Neurologic/Psychiatric: alert, oriented x 3, other (able to carry on a conversation with me but speech is somewhat slurred. ) Skin: normal color, warm/dry, other (multiple superficial sores to the lower extremities and face consistent with reported pyoderma.) Progress/Results/Core Measures Results/Orders My Orders Orders - GARETH RAPP APRN Knee, 3 Views, Bilateral (05/03/19 11:47) Vital Signs/I&O 05/03/19 11:34 Temp 97.2 Pulse 72 Resp 18 B/P (MAP) 107/47 (67) Pulse Ox 98 O2 Delivery Room Air Blood Pressure Mean: 67 Departure Communication (Admissions) [id number] my entrance into the room to give discharge papers, patient is sleeping and snoring, startles when awakened. Agrees with discharge plan. Will follow up with primary care. I do have some concerns about excessive opiate use given her degree of somnolence in the emergency room. Impression Primary Impression: Knee contusion Qualified Codes: S80.00XA - Contusion of unspecified knee, initial encounter Disposition: HOME, SELF-CARE Condition: Stable Departure-Patient Inst. Decision time for Depature: 12:35 Referrals: JUAN DAVID WELSH MD (PCP/Family) Primary Care Physician Patient Instructions: Contusion (DC) Add. Discharge Instructions: 1. Return to ER for any concerns 2. Follow-up with your doctor next week 3. All discharge instructions reviewed with patient and/or family. Voiced understanding. Copy Copies To 1: JUAN DAVID WELSH MD, PETER J APRN May 03, 2019 11:51
--- NOTE | 2019-05-03 12:42 | Diagnostic Imaging Report ---
INDICATION: Bilateral knee pain. TIME OF EXAM: 12:21 PM FINDINGS: Multiple views bilateral knees were obtained. Both knees demonstrate mild medial compartmental degenerative change with mild joint space narrowing and marginal spurring. Lateral and patellofemoral compartments are fairly well maintained. There is some minimal degenerative spurring along the posterior aspect of the left patella. No fracture, dislocation or effusion is identified. IMPRESSION: Bilateral degenerative changes. No acute bony abnormality is detected. Dictated by: Dictated on workstation # [id number]
[2019-05-03 12:49] VITALS: BP 114/62
== END 2019-05-03 12:49 | disposition home or self-care (01) ==
LOC: EDUNIT# 10:51 → ER 10:52
DX: S80.01XA Contusion of right knee, initial encounter (principal); S80.02XA Contusion of left knee, initial encounter; J44.9 Chronic obstructive pulmonary disease, unspecified; I10 Essential (primary) hypertension; G43.909 Migraine, unspecified, not intractable, without status migrainosus; K21.9 Gastro-esophageal reflux disease without esophagitis; K58.9 Irritable bowel syndrome, unspecified; K74.60 Unspecified cirrhosis of liver; E11.9 Type 2 diabetes mellitus without complications; F41.9 Anxiety disorder, unspecified; F32.9 Major depressive disorder, single episode, unspecified; Z88.1 Allergy status to other antibiotic agents; Z80.42 Family history of malignant neoplasm of prostate; Z90.49 Acquired absence of other specified parts of digestive tract; Z90.710 Acquired absence of both cervix and uterus; Z98.51 Tubal ligation status; Z96.651 Presence of right artificial knee joint; W01.0XXA Fall on same level from slipping, tripping and stumbling without subsequent striking against object, initial encounter; Y92.513 Shop (commercial) as the place of occurrence of the external cause

== ENCOUNTER 2019-05-10 05:41 | Outpatient (CLI) | payer MEDICARE ==
[~2019-05-10] VITALS: Ht 165.1 cm; Wt 98.0 kg
[~2019-05-10 05:41] MED LIST changes: -MORP-34; +MORP-34 PO
[2019-05-10] MEDS ORDERED: RANI150T11 PO (16:37)
[2019-05-10] MEDS ORDERED: MORP-33 PO (16:37)
[2019-05-10] MEDS ORDERED: METH2.5T PO (16:37)
[2019-05-10] MEDS ORDERED: MELO15TA39 PO (16:37)
[2019-05-10] MEDS ORDERED: CITA40TA11 PO (16:37)
[2019-05-10] MEDS ORDERED: ATOR20TA66 PO (16:37)
[2019-05-15] MEDS ORDERED: HYDR-3063 PO (09:05)
== END 2019-05-10 16:39 | disposition home or self-care (01) ==
LOC: PREOP 05:41
PROVIDERS: ATTEND Orthopaedic Surgery
DX: Z01.818 Encounter for other preprocedural examination (principal)

== ENCOUNTER 2019-08-25 07:02 | Emergency (ER) | payer MEDICARE ==
[~2019-08-25] VITALS: Ht 165 cm; Wt 116.0 kg
[~2019-08-25 07:02] MED LIST changes: +ATOR20TA66 PO; +CITA40TA11 PO; +HYDR-3063 PO; +MELO15TA39 PO; +METH2.5T PO; +MORP-33 PO; +RANI150T11 PO
[2019-08-25] MEDS ORDERED: fentaNYL INJECTION 100 MCG/2 ML AMP IVP ONE (07:15)
[2019-08-25] MEDS ORDERED: NS IV 1000 ML 1,000 ML IV ONE (07:15)
--- NOTE | 2019-08-25 07:18 | ED Abdominal Pain ---
General Stated Complaint: ABD PAIN Source of Information: Patient Exam Limitations: No Limitations History of Present Illness Date Seen by Provider: Aug 25, 2019 Time Seen by Provider: 07:05 Initial Comments Patient presents to ER by private conveyance with chief complaint that since last night she's been having a lot of bright red blood with clots largest her hand. She does not have a history of anemia or diverticulitis. She's having some left lower quadrant abdominal pain. 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 Is followed by Dr. Escobar locally. She said she had a few spots of blood on the 26, 2 days ago but last night it opened up. She chronically takes 30 mg morphine IV for pain. She did have a scope 2 years ago at and colonoscopy EGD and capsule endoscopy and she was told she had lots of small pre-polyps proximal to her terminal ileum. They have not decided what to do with this information yet. She denies a history of diverticulosis. She's not having any nausea. She took her morning morphine and said it did not touch her pain. She rates it as an 8 out of 10, nonradiating. She's had a hysterectomy, exploratory laparotomy, lipomas removed, ventral hernia and another hernia repair on her abdomen. Allergies and Home Medications Allergies Coded Allergies: Tetracyclines (Verified Allergy, Unknown, 10/15/09) adhesive tape (Verified Allergy, Unknown, 05/15/19) azithromycin (Verified Allergy, Unknown, 01/23/14) doxycycline (Verified Allergy, Unknown, 05/15/19) niacin (Verified Allergy, Unknown, 05/15/19) Uncoded Allergies: "CYCLINES" (Allergy, Mild, 10/13/09) Home Medications Albuterol Sulfate 8.5 Gm Hfa.aer.ad, 2-4 PUFF IH Q4H PRN for SHORTNESS OF BREATH Prescribed by: ZAC ROBLERO on 02/22/16 1210 Albuterol Sulfate 2.5 Mg/3 Ml Vial.neb, 2.5 MG IH Q4H Every 4 hrs scheduled x 24 hours. Every 2 hrs as needed for SOA Prescribed by: ZAC ROBLERO on 02/22/16 1210 Alprazolam 0.5 Mg Tablet, 0.25 MG PO BID PRN for ANXIETY, (Reported) take 1/2 of .5mg tab Amitriptyline HCl 25 Mg Tablet, 25 MG PO HS, (Reported) Atorvastatin Calcium 20 Mg Tablet, 20 MG PO HS, (Reported) Citalopram Hydrobromide 40 Mg Tablet, 40 MG PO HS, (Reported) Hydrochlorothiazide 25 Mg Tablet, 25 MG PO DAILY, (Reported) Hydrocodone/Acetaminophen 1 Each Tablet, 1 EACH PO Q4H PRN for PAIN-MODERATE Prescribed by: DUNIA CHACON on 05/15/19 09 Linaclotide 290 Mcg Capsule, 290 MCG PO DAILY PRN for CONSTIPATION-1ST LINE, (Reported) Meloxicam 15 Mg Tablet, 15 MG PO DAILY, (Reported) Methotrexate Sodium 2.5 Mg Tablet, 15 MG PO WEEK, (Reported) TAKE 6 (2.5MG) TABS ON MONDAY Metoprolol Succinate 50 Mg Tab.er.24h, 50 MG PO BID, (Reported) Morphine Sulfate 30 Mg Tablet.er, 30 MG PO BID, (Reported) Morphine Sulfate 15 Mg Tablet.er, 15 MG PO DAILY@1200, (Reported) Ranitidine HCl 150 Mg Tablet, 150 MG PO BID, (Reported) Patient Home Medication List Home Medication List Reviewed: Yes Review of Systems Review of Systems Constitutional: No chills, No diaphoresis EENTM: No Blurred Vision, No Double Vision Respiratory: Denies Cough, Denies Shortness of Air Cardiovascular: Denies Chest Pain, Denies Edema, Denies Lightheadedness Gastrointestinal: See HPI, Abdominal Pain, Blood Streaked Stools; Denies Constipated, Denies Diarrhea, Denies Nausea Genitourinary: Denies Burning, Denies Discharge Musculoskeletal: No back pain, No joint pain Skin: No pruritus, No rash All Other Systems Reviewed Negative Unless Noted: Yes Past Gmwxrib-Bszlkd-Vqgzbd Hx Patient Social History Alcohol Use: Rarely Uses Recreational Drug Use: No Smoking Status: Never a Smoker 2nd Hand Smoke Exposure: No Recent Foreign Travel: No Contact w/Someone Who Travel: No Recent Hopitalizations: No Immunizations Up To Date Tetanus Booster (TDap): Less than 5yrs Date of Pneumonia Vaccine: Apr 28, 2016 Date of Influenza Vaccine: Jun 02, 2015 Seasonal Allergies Seasonal Allergies: Yes Past Medical History Surgeries: Yes (SPINAL LIPOMAS REMOVED, ABD ADHESIONS, abdomnalnecrotic tissue debrided) Abdominal, Appendectomy, Section, Ear Surgery, Gallbladder, Hysterectomy, Oophorectomy, Orthopedic, Tubal Ligation Respiratory: Yes Asthma, Chronic Bronchitis Cardiac: Yes Hypertension Neurological: Yes Headaches /Migraines 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 Disorders: No Female 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 Disorders: Denies 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 Genitourinary: Yes Kidney Infection Gastrointestinal: Yes (INCARCERATED HERNIA) Abdominal Hernia, Gastroesophageal Reflux, Chronic Diarrhea, Ulcer, Cirrhosis, Irritable Bowel Musculoskeletal: Yes (BUNIONECTOMY,HAMMER TOE REPAIR, L KNEE) Arthritis, Chronic Back Pain Endocrine: No Diabetes, Non-Insulin dep HEENT: No Loss of Vision: Denies Hearing Impairment: Denies Cancer: No Psychosocial: Yes Anxiety, Depression Integumentary: Yes (pyodermic gangrenosum, 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) Blood Disorders: Yes (monoclonal gammopathy) Family Medical History Cancer 19 FATHER, (PROSTATE CANCER) Family history: Diabetes mellitus G8 BROTHER Hearing loss G8 SISTER Heart disease 19 MOTHER (STENTS) Heart Disease, Cancer, Diabetes, Hypertension Physical Exam Vital Signs Vital Signs - First Documented 08/25/19 07:05 Temp 37.0 Pulse 69 Resp 18 B/P (MAP) 187/122 (143) Pulse Ox 98 O2 Delivery Room Air Capillary Refill : Height/Weight/BMI Height: 5'5.00" Weight: 216lbs. 0.0oz. [id number]; 40.28 BMI Method:Stated General Appearance: WD/WN, mild distress HEENT: PERRL/EOMI, normal ENT inspection, pharynx normal Neck: full range of motion, normal inspection Respiratory: lungs clear, normal breath sounds, no respiratory distress, no accessory muscle use Cardiovascular: normal peripheral pulses, regular rate, rhythm Peripheral Pulses: 2+ Radial Pulses (R), 2+ Radial Pulses (L) Gastrointestinal: normal bowel sounds (quiescent), soft, no organomegaly, tende rness (left lower quadrant without mass) Neurologic/Psychiatric: alert, normal mood/affect, oriented x 3 Skin: normal color, warm/dry Progress/Results/Core Measures Results/Orders Lab Results Laboratory Tests Test 08/25/19 07:20 08/25/19 08:25 Range/Units White Blood Count 8.2 4.3-11.0 10^3/uL Red Blood Count 5.00 4.35-5.85 10^6/uL Hemoglobin 14.7 11.5-16.0 G/DL Hematocrit 44 35-52 % Mean Corpuscular Volume 87 80-99 FL Mean Corpuscular Hemoglobin 29 25-34 PG Mean Corpuscular Hemoglobin Concent 34 32-36 G/DL Red Cell Distribution Width 14.4 10.0-14.5 % Platelet Count 414 H 130-400 10^3/uL Mean Platelet Volume 9.1 7.4-10.4 FL Neutrophils (%) (Auto) 49 42-75 % Lymphocytes (%) (Auto) 39 12-44 % Monocytes (%) (Auto) 11 0-12 % Eosinophils (%) (Auto) 2 0-10 % Basophils (%) (Auto) 1 0-10 % Neutrophils # (Auto) 4.0 1.8-7.8 X 10^3 Lymphocytes # (Auto) 3.2 1.0-4.0 X 10^3 Monocytes # (Auto) 0.9 0.0-1.0 X 10^3 Eosinophils # (Auto) 0.1 0.0-0.3 10^3/uL Basophils # (Auto) 0.0 0.0-0.1 10^3/uL Sodium Level 143 135-145 MMOL/L Potassium Level 3.8 3.6-5.0 MMOL/L Chloride Level 103 98-107 MMOL/L Carbon Dioxide Level 25 21-32 MMOL/L Anion Gap 15 H 5-14 MMOL/L Blood Urea Nitrogen 10 7-18 MG/DL Creatinine 0.72 0.60-1.30 MG/DL Estimat Glomerular Filtration Rate > 60 BUN/Creatinine Ratio 14 Glucose Level 99 70-105 MG/DL Calcium Level 10.1 8.5-10.1 MG/DL Corrected Calcium 8.5-10.1 MG/DL Total Bilirubin 0.5 0.1-1.0 MG/DL Aspartate Amino Transf (AST/SGOT) 14 5-34 U/L Alanine Aminotransferase (ALT/SGPT) 18 0-55 U/L Alkaline Phosphatase 82 40-136 U/L Total Protein 7.6 6.4-8.2 GM/DL Albumin 4.8 H 3.2-4.5 GM/DL Urine Color YELLOW Urine Clarity CLEAR Urine pH 7.5 5-9 Urine Specific [place] 1.010 L 1.016-1.022 Urine Protein NEGATIVE NEGATIVE Urine Glucose (UA) NEGATIVE NEGATIVE Urine Ketones NEGATIVE NEGATIVE Urine Nitrite NEGATIVE NEGATIVE Urine Bilirubin NEGATIVE NEGATIVE Urine Urobilinogen 0.2 < = 1.0 MG/DL Urine Leukocyte Esterase TRACE NEGATIVE Urine RBC (Auto) 2+ H NEGATIVE Urine RBC NONE /HPF Urine WBC RARE /HPF Urine Squamous Epithelial Cells RARE /HPF Urine Crystals NONE /LPF Urine Bacteria LARGE H /HPF Urine Casts NONE /LPF Urine Mucus NEGATIVE /LPF Urine Culture Indicated NO My Orders Orders - ANIBAL RODRIGUEZ Ua Culture If Indicated (08/25/19 07:04) Ed Iv/Invasive Line Start (08/25/19 07:15) Fentanyl Injection (Sublimaze Injection (08/25/19 07:15) Cbc With Automated Diff (08/25/19 07:15) Comprehensive Metabolic Panel (08/25/19 07:15) Ct Abdomen/Pelvis W (08/25/19 07:15) Ns Iv 1000 Ml (Sodium Chloride 0.9%) (08/25/19 07:15) Pantoprazole Injection (Protonix Injecti (08/25/19 07:30) Ketamine Syringe (Ed Only) (Ketamine Syr (08/25/19 08:00) Iohexol Injection (Omnipaque 350 Mg/Ml 1 (08/25/19 08:15) Ns (Ivpb) (Sodium Chloride 0.9% Ivpb Bag (08/25/19 08:15) Medications Given in ED Current Medications Medications Dose Ordered Sig/Steve Route Start Time Stop Time Status Last Admin Dose Admin Fentanyl Citrate 50 mcg ONCE ONCE IVP 08/25/19 07:15 08/25/19 07:18 DC 08/25/19 07:26 50 MCG Iohexol 100 ml ONCE ONCE IV 08/25/19 08:15 08/25/19 08:16 DC 08/25/19 08:16 100 ML Ketamine HCl 25 mg ONCE ONCE IV 08/25/19 08:00 08/25/19 08:01 DC 08/25/19 07:54 25 MG Pantoprazole 40 mg ONCE ONCE IV 08/25/19 07:30 08/25/19 07:31 DC 08/25/19 07:27 40 MG Sodium Chloride 80 ml ONCE ONCE IV 08/25/19 08:15 08/25/19 08:16 DC 08/25/19 08:16 80 ML Sodium Chloride 1,000 ml @ 0 mls/hr Q0M ONCE IV 08/25/19 07:15 08/25/19 07:18 DC 08/25/19 07:28 1,000 MLS/HR Vital Signs/I&O 08/25/19 07:05 Temp 37.0 Pulse 69 Resp 18 B/P (MAP) 187/122 (143) Pulse Ox 98 O2 Delivery Room Air Progress Progress Note #1: Time: 07:30 Progress Note Plan to obtain blood and urine ruling out infection and significant anemia. CT of the abdomen and pelvis looking for diverticulitis or other worrisome findings. Liter fluids. Her blood pressure is up but this could be because of pain. We'll start with 50 g of fentanyl and go from there. Progress Note #2: Time: 09:52 Progress Note Patient's pain is much better after fentanyl and ketamine. She's not having any nausea. We will have her pursue follow-up with her cardiopulmonary technologist chief outpatient tomorrow. Diagnostic Imaging Diagonstic Imaging: CT (with IV contrast) Plain Films/CT/US/NM/MRI: abdomen, pelvis Comments NAME: CRAIG DUNN [facility] REC#: [id number] PT STATUS: REG ER : 1965 PHYSICIAN: ANIBAL RODRIGUEZ MD ADMIT DATE: 08/25/19/ER Draft Date of Exam:08/25/19 CT ABDOMEN/PELVIS W PROCEDURE: CT abdomen and pelvis with contrast. TECHNIQUE: Multiple contiguous axial images were obtained through the abdomen and pelvis after administration of intravenous contrast. Auto Exposure Controls were utilized during the CT exam to meet ALARA standards for radiation dose reduction. INDICATION: Abdominal pain. Correlation is made with prior CT from 04/17/2014. The lung bases are clear. Liver demonstrates generalized low density consistent with hepatic steatosis. No discrete liver mass is identified. The gallbladder is surgically absent. No biliary ductal dilatation is seen. Pancreas is unremarkable. There is a somewhat heterogeneous appearance to the spleen. Multiple rounded low densities with central hyperdensity is noted. These most likely represent calcifications, perhaps from prior granulomatous exposure. This is more prominent than prior study from 2013. No adrenal mass is identified. Kidneys are unremarkable. There is a probable cyst in the lower pole of the left kidney which has increased in size since prior study. This measures 18 mm compared with 8 mm. Aorta is non-aneurysmal. No central retroperitoneal or mesenteric lymphadenopathy is detected. Bowel loops appear to be normal caliber. There is no obstruction. There appear to be postsurgical changes to the anterior abdominal wall from hernia repair. No definite recurrent hernia is detected. There is no free fluid or fluid collection in the abdomen or pelvis. The bladder is unremarkable. The uterus appears to be surgically absent. IMPRESSION: 1. Hepatic steatosis. 2. Left renal cyst, increased in size since exam 5 years earlier. 3. Numerous splenic hyperdensities suggestive of calcifications likely from prior granulomatous exposure. 4. No acute feature in the abdomen or pelvis is seen. Dictated on workstation # [id number] Dict: 08/25/19825 Trans: 08/25/19 0839 [facility] [id number] Interpreted by: DOMENICO DOSHI MD Electronically signed by: Reviewed: Reviewed by Me Departure Impression Primary Impression: GI bleed Qualified Codes: K92.2 - Gastrointestinal hemorrhage, unspecified Disposition: HOME, SELF-CARE Condition: Stable Departure-Patient Inst. Decision time for Depature: 09:53 Referrals: JUAN DAVID ESCOBAR MD (PCP/Family) Primary Care Physician Patient Instructions: Gastrointestinal Bleeding (DC) Add. Discharge Instructions: Follow-up tomorrow with your primary doctor or your cardiopulmonary technologist chief to get set up for endoscopy. Return to the ER if you Begin to have chest pain or shortness of breath. Start taking the pantoprazole 20 mg twice a until left ear scope. Hydrocodone one tablet every 6 hours as needed for breakthrough pain. Scripts Pantoprazole Sodium (Pantoprazole Sodium) 20 Mg Tablet.dr 20 MG PO BID for 14 Days, #30 TAB 0 Refills Prov: ANIBAL RODRIGUEZ 08/25/19 Hydrocodone Bit/Acetaminophen (Hydrocodone/Acetaminophen 5/325mg Tablet) 1 Tab Tab 1-2 EACH PO Q6H PRN for PAIN-MODERATE MDD 10 for 3 Days, #20 TAB 0 Refills Prov: ANIBAL RODRIGUEZ 08/25/19 ANIBAL RODRIGUEZ Aug 25, 2019 07:18
[2019-08-25 07:26] LABS: BASOPHILS % (AUTO) 1 % (0-10); EOSINOPHILS # (AUTO) 0.1 10^3/uL (0.0-0.3); EOSINOPHILS % (AUTO) 2 % (0-10); HEMATOCRIT 44 % (35-52); HEMOGLOBIN 14.7 G/DL (11.5-16.0); LYMPHOCYTES # (AUTO) 3.2 X 10^3 (1.0-4.0); LYMPHOCYTES % (AUTO) 39 % (12-44); MEAN CORPUSCULAR HEMOGLOBIN 29 PG (25-34); MEAN CORPUSCULAR HGB CONC 34 G/DL (32-36); MEAN CORPUSCULAR VOLUME 87 FL (80-99); MEAN PLATELET VOLUME 9.1 FL (7.4-10.4); MONOCYTES # (AUTO) 0.9 X 10^3 (0.0-1.0); MONOCYTES % (AUTO) 11 % (0-12); NEUTROPHILS % (AUTO) 49 % (42-75); PLATELET COUNT 414 10^3/uL (130-400); RED CELL DISTRIBUTION WIDTH 14.4 % (10.0-14.5); WHITE BLOOD COUNT 8.2 10^3/uL (4.3-11.0)
[2019-08-25] MEDS ORDERED: PANTOPRAZOLE 40 MG (PROTONIX) VIAL IV ONE (07:30)
[2019-08-25 07:44] LABS: ALANINE AMINOTRANSFERASE 18 U/L (0-55); ALBUMIN 4.8 GM/DL (3.2-4.5); ALKALINE PHOSPHATASE 82 U/L (40-136); BILIRUBIN,TOTAL 0.5 MG/DL (0.1-1.0); BUN/CREATININE RATIO 14; CALCIUM 10.1 MG/DL (8.5-10.1); CARBON DIOXIDE 25 MMOL/L (21-32); CHLORIDE 103 MMOL/L (98-107); CREATININE SERUM 0.72 MG/DL (0.60-1.30); GFR ESTIMATED > 60; GLUCOSE 99 MG/DL (70-105); POTASSIUM 3.8 MMOL/L (3.6-5.0); SODIUM 143 MMOL/L (135-145); TOTAL PROTEIN 7.6 GM/DL (6.4-8.2)
[2019-08-25] MEDS ORDERED: KETAMINE/NaCl 50 MG/5 ML SYRINGE (ED ONLY) IV ONE (08:00)
--- NOTE | 2019-08-25 08:01 | NUR ---
PT WAS PLACED ON A CONT PULSE OX AFTER KETAMINE GIVEN.
[2019-08-25] MEDS ORDERED: NS 100 ML (IVPB) BAG IV ONE (08:15)
[2019-08-25] MEDS ORDERED: IOHEXOL 350 MG/ML 100 ML (OMNIPAQUE 350) VIAL IV ONE (08:15)
--- NOTE | 2019-08-25 08:25 | NUR ---
UP ET AMBULATED TO BATHROOM WITHOUT DIFFICULTY. PT STATES SHE IS FEELING BETTER AFTER THE KETAMINE.
[2019-08-25 08:34] LABS: BILIRUBIN,URINE NEGATIVE (NEGATIVE); CLARITY,URINE CLEAR; COLOR,URINE YELLOW; GLUCOSE, URINE (UA) NEGATIVE (NEGATIVE); KETONES,URINE NEGATIVE (NEGATIVE); LEUKOCYTE ESTERASE ,URINE TRACE (NEGATIVE); NITRITE,URINE NEGATIVE (NEGATIVE); PH,URINE 7.5 (5-9); PROTEIN,URINE NEGATIVE (NEGATIVE)
--- NOTE | 2019-08-25 08:40 | Diagnostic Imaging Report ---
PROCEDURE: CT abdomen and pelvis with contrast. TECHNIQUE: Multiple contiguous axial images were obtained through the abdomen and pelvis after administration of intravenous contrast. Auto Exposure Controls were utilized during the CT exam to meet ALARA standards for radiation dose reduction. INDICATION: Abdominal pain. Correlation is made with prior CT from 04/17/2014. The lung bases are clear. Liver demonstrates generalized low density consistent with hepatic steatosis. No discrete liver mass is identified. The gallbladder is surgically absent. No biliary ductal dilatation is seen. Pancreas is unremarkable. There is a somewhat heterogeneous appearance to the spleen. Multiple rounded low densities with central hyperdensity is noted. These most likely represent calcifications, perhaps from prior granulomatous exposure. This is more prominent than prior study from 2013. No adrenal mass is identified. Kidneys are unremarkable. There is a probable cyst in the lower pole of the left kidney which has increased in size since prior study. This measures 18 mm compared with 8 mm. Aorta is non-aneurysmal. No central retroperitoneal or mesenteric lymphadenopathy is detected. Bowel loops appear to be normal caliber. There is no obstruction. There appear to be postsurgical changes to the anterior abdominal wall from hernia repair. No definite recurrent hernia is detected. There is no free fluid or fluid collection in the abdomen or pelvis. The bladder is unremarkable. The uterus appears to be surgically absent. IMPRESSION: 1. Hepatic steatosis. 2. Left renal cyst, increased in size since exam 5 years earlier. 3. Numerous splenic hyperdensities suggestive of calcifications likely from prior granulomatous exposure. 4. No acute feature in the abdomen or pelvis is seen. Dictated by: Dictated on workstation # [id number]
[2019-08-25 08:41] LABS: BACTERIA,URINE LARGE /HPF; SQUAMOUS EPITHELIAL CELL,UR RARE /HPF; WBC,URINE RARE /HPF
--- NOTE | 2019-08-25 09:19 | NUR ---
PT STATES HER STOMACH IS STARTING TO "SMART". NOTIFIED WE WERE WAITING ON DR TO LOOK AT EVERYTHING. WARM BLANKET GIVEN. BP DECREASED TO 159/105.
[2019-08-25] MEDS ORDERED: PANT20TA3 PO (09:54)
[2019-08-25] MEDS ORDERED: ACHD5005 PO (09:54)
[2019-08-25 10:00] VITALS: BP 159/109
== END 2019-08-25 10:00 | disposition home or self-care (01) ==
LOC: EDUNIT# 07:02 → ER 07:03
DX: K92.2 Gastrointestinal hemorrhage, unspecified (principal); I10 Essential (primary) hypertension; E11.9 Type 2 diabetes mellitus without complications; F41.9 Anxiety disorder, unspecified; F32.9 Major depressive disorder, single episode, unspecified; G43.909 Migraine, unspecified, not intractable, without status migrainosus; K21.9 Gastro-esophageal reflux disease without esophagitis; K58.9 Irritable bowel syndrome, unspecified; Z90.710 Acquired absence of both cervix and uterus; Z88.1 Allergy status to other antibiotic agents; Z88.8 Allergy status to other drugs, medicaments and biological substances; Z90.49 Acquired absence of other specified parts of digestive tract; Z98.51 Tubal ligation status; Z82.49 Family history of ischemic heart disease and other diseases of the circulatory system; Z80.42 Family history of malignant neoplasm of prostate
CPT/HCPCS: 36415; 74177; 80053; 81000; 85025; 96361; 96374; 96375

== ENCOUNTER 2019-10-02 05:33 | Outpatient (CLI) | payer MEDICARE ==
[~2019-10-02] VITALS: Ht 165 cm; Wt 113.0 kg
[~2019-10-02 05:33] MED LIST changes: -METO-370 PO; +METO50TA7 PO; -MORP-33 PO; -MORP-34 PO; +MORP-68 PO; +MORP-69 PO; +PANT20TA3 PO
[2019-10-02] MEDS ORDERED: FOLI1TAB24 PO (13:33)
== END 2019-10-02 13:39 | disposition home or self-care (01) ==
LOC: PREOP 05:33
PROVIDERS: ATTEND Surgery
DX: Z01.818 Encounter for other preprocedural examination (principal)

== ENCOUNTER 2019-11-17 16:52 | Emergency (ER) | payer MEDICARE ==
[~2019-11-17] VITALS: Ht 165.1 cm; Wt 106.8 kg
[~2019-11-17 16:52] MED LIST changes: +FOLI1TAB24 PO; +ONDA-105 PO; -ONDA4TAB10 PO
[2019-11-17] MEDS ORDERED: NS IV 1000 ML 1,000 ML IV ONE (17:24)
[2019-11-17] MEDS ORDERED: PROMETHAZINE INJ 25 MG/ML (PHENERGAN) AMP IVP ONE (17:30)
--- NOTE | 2019-11-17 17:36 | ED Headache ---
General Chief Complaint: Head/Cervical Problems Stated Complaint: MIGRAINE Nursing Triage Note: AMB TO ED WITH C/O HEADACHE FOR 2 DAYS THAT MORPHINE 15MG IS NOT HELING HAS PMH OF PYODERMA GANGRENOSUM DR WELSH HAS TESTED HER FOR FLU AND MONTES VIRUS AND BOTH TEST WAS NEG. RECEIVED WORD ON MONDAY THAT HER MONTES TEST WAS NEG. Nursing Sepsis Screen: No Definite Risk Source: patient Exam Limitations: no limitations (ZAC ENCINAS MD) History of Present Illness Date Seen by Provider: Nov 17, 2019 Time Seen by Provider: 17:15 Initial Comments This 54-year-old woman presents to emergency room with migraine 2 days. She had a flulike syndrome last week and was treated with Tamiflu. She tested negative for influenza and coronavirus. She has a history of migraines for which she takes amitriptyline and morphine. These therapies have not aborted her migraine. She also has history of pyoderma and is on methotrexate for immunosuppression. She is to be very careful with NSAID therapies because of methotrexate use. She does not take NSAIDs [id number]. She recalls being treated with Toradol, ketamine, Nubain, and Phenergan for migraines in the past. She developed nausea and vomiting with her headache today and so decided to present to the emergency room. (ZAC ENCINAS MD) Allergies and Home Medications Allergies Coded Allergies: Tetracyclines (Verified Allergy, Unknown, 10/02/19) adhesive tape (Verified Allergy, Unknown, 10/02/19) azithromycin (Verified Allergy, Unknown, 10/02/19) doxycycline (Verified Allergy, Unknown, 10/02/19) niacin (Verified Allergy, Unknown, 10/02/19) Uncoded Allergies: "CYCLINES" (Allergy, Mild, 10/13/09) Home Medications Albuterol Sulfate 8.5 Gm Hfa.aer.ad, 2-4 PUFF IH Q4H PRN for SHORTNESS OF BREATH Prescribed by: ZAC ROBLERO on 02/22/16 1210 Albuterol Sulfate 2.5 Mg/3 Ml Vial.neb, 2.5 MG IH Q4H Every 4 hrs scheduled x 24 hours. Every 2 hrs as needed for SOA Prescribed by: ZAC ROBLERO on 02/22/16 1210 Alprazolam 0.5 Mg Tablet, 0.25 MG PO BID PRN for ANXIETY, (Reported) take 1/2 of .5mg tab Amitriptyline HCl 25 Mg Tablet, 25 MG PO HS, (Reported) Atorvastatin Calcium 20 Mg Tablet, 20 MG PO HS, (Reported) Citalopram Hydrobromide 40 Mg Tablet, 40 MG PO HS, (Reported) Folic Acid 1 Mg Tablet, 5 MG PO SuMoTuThFrSa, (Reported) Hydrochlorothiazide 25 Mg Tablet, 25 MG PO DAILY, (Reported) Linaclotide 290 Mcg Capsule, 290 MCG PO DAILY PRN for CONSTIPATION-1ST LINE, (Reported) Methotrexate Sodium 2.5 Mg Tablet, 15 MG PO WEEK, (Reported) TAKE 6 (2.5MG) TABS ON MONDAY Metoprolol Succinate 50 Mg Tab.er.24h, 50 MG PO BID, (Reported) Morphine Sulfate 30 Mg Tablet.er, 30 MG PO BID, (Reported) Morphine Sulfate 15 Mg Tablet.er, 15 MG PO DAILY@1200, (Reported) Pantoprazole Sodium 20 Mg Tablet.dr, 20 MG PO BID Prescribed by: ANIBAL RODRIGUEZ on 08/25/19 8116 Patient Home Medication List Home Medication List Reviewed: Yes (ZAC ENCINAS MD) Review of Systems Review of Systems Constitutional: no symptoms reported Eyes: No Symptoms Reported Ears, Nose, Mouth, Throat: no symptoms reported Respiratory: no symptoms reported Cardiovascular: no symptoms reported Gastrointestinal: nausea, vomiting Genitourinary: no symptoms reported : No Musculoskeletal: no symptoms reported Skin: see HPI Psychiatric/Neurological: See HPI (ZAC ENCINAS MD) Past Hzfzrkr-Sytujp-Qdqggp Hx Past Med/Social Hx: Reviewed Nursing Past Med/Soc Hx (ZAC ENCINAS MD) Patient Social History Alcohol Use: Occasionally Uses Number of Drinks Today: Alcohol Beverage of Choice: Wine Recreational Drug Use: No Smoking Status: Never a Smoker 2nd Hand Smoke Exposure: No Recent Foreign Travel: No Contact w/Someone Who Travel: No Recent Infectious Disease Expo: No Recent Hopitalizations: No (ZAC ENCINAS MD) Immunizations Up To Date Tetanus Booster (TDap): Less than 5yrs Date of Pneumonia Vaccine: Apr 28, 2016 Date of Influenza Vaccine: Jun 02, 2015 (ZAC ENCINAS MD) Seasonal Allergies Seasonal Allergies: Yes (ZAC ENCINAS MD) Past Medical History Surgeries: Yes (SPINAL LIPOMAS REMOVED, ABD ADHESIONS, abdomnalnecrotic tissue debrided, ) Abdominal, Appendectomy, Section, Ear Surgery, Gallbladder, Hysterectomy, Oophorectomy, Orthopedic, Tubal Ligation Respiratory: Yes Asthma, Chronic Bronchitis Cardiac: Yes Hypertension Neurological: Yes Headaches /Migraines 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 Disorders: No Female 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 Disorders: 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 Sexually Transmitted Disease: No HIV/AIDS: No Genitourinary: Yes Kidney Infection Gastrointestinal: Yes (INCARCERATED HERNIA) Abdominal Hernia, Gastroesophageal Reflux, Chronic Diarrhea, Ulcer, Irritable Bowel Musculoskeletal: Yes (BUNIONECTOMY,HAMMER TOE REPAIR, L KNEE) Arthritis, Chronic Back Pain Endocrine: Yes Diabetes, Non-Insulin dep HEENT: No (GLASSES) Loss of Vision: Denies Hearing Impairment: Denies Cancer: No Psychosocial: Yes Anxiety, Depression Integumentary: Yes (pyodermic gangrenosum, 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) Blood Disorders: Yes (monoclonal gammopathy) Adverse Reaction/Blood Tranf: No (N/A) (ZAC ENCINAS MD) Family Medical History Reviewed Nursing Family Hx (ZAC ENCINAS MD) Cancer 19 FATHER, (PROSTATE CANCER) Family history: Diabetes mellitus G8 BROTHER Hearing loss G8 SISTER Heart disease 19 MOTHER (STENTS) Heart Disease, Cancer, Diabetes, Hypertension (ZAC ENCINAS MD) Physical Exam Vital Signs Vital Signs - First Documented 11/17/19 16:56 Temp 37.3 Pulse 112 Resp 18 B/P (MAP) 182/116 (138) Pulse Ox 98 (JENNIFER,ANIBAL J) Vital Signs Capillary Refill : Less Than 3 Seconds (ZAC ENCINAS MD) Height, Weight, BMI Height: 5'5.00" Weight: 216lbs. 0.0oz. 97.511683xu; 39.00 BMI Method:Stated General Appearance: WD/WN, mild distress HEENT: PERRL/EOMI, normal ENT inspection, pharynx normal, other (Flushing of the face) Neck: normal inspection Cardiovascular: no edema, no murmur, tachycardia Respiratory: lungs clear, normal breath sounds, no respiratory distress, no accessory muscle use Gastrointestinal: normal bowel sounds, non tender, soft Extremities: normal inspection, no pedal edema Psychiatric: alert, oriented x 3 Crainal Nerves: normal hearing, normal speech, PERRL Motor/Sensory: no motor deficit, no sensory deficit Skin: normal color, warm/dry (ZAC ENCINAS MD) Progress/Results/Core Measures Results/Orders Lab Results Laboratory Tests Test 11/17/19 17:50 Range/Units White Blood Count 6.4 4.3-11.0 10^3/uL Red Blood Count 4.25 L 4.35-5.85 10^6/uL Hemoglobin 12.7 11.5-16.0 G/DL Hematocrit 39 35-52 % Mean Corpuscular Volume 91 80-99 FL Mean Corpuscular Hemoglobin 30 25-34 PG Mean Corpuscular Hemoglobin Concent 33 32-36 G/DL Red Cell Distribution Width 14.3 10.0-14.5 % Platelet Count 429 H 130-400 10^3/uL Mean Platelet Volume 9.2 7.4-10.4 FL Neutrophils (%) (Auto) 55 42-75 % Lymphocytes (%) (Auto) 34 12-44 % Monocytes (%) (Auto) 9 0-12 % Eosinophils (%) (Auto) 2 0-10 % Basophils (%) (Auto) 1 0-10 % Neutrophils # (Auto) 3.5 1.8-7.8 X 10^3 Lymphocytes # (Auto) 2.2 1.0-4.0 X 10^3 Monocytes # (Auto) 0.6 0.0-1.0 X 10^3 Eosinophils # (Auto) 0.1 0.0-0.3 10^3/uL Basophils # (Auto) 0.0 0.0-0.1 10^3/uL Sodium Level 142 135-145 MMOL/L Potassium Level 4.0 3.6-5.0 MMOL/L Chloride Level 105 98-107 MMOL/L Carbon Dioxide Level 24 21-32 MMOL/L Anion Gap 13 5-14 MMOL/L Blood Urea Nitrogen 8 7-18 MG/DL Creatinine 0.62 0.60-1.30 MG/DL Estimat Glomerular Filtration Rate > 60 BUN/Creatinine Ratio 13 Glucose Level 110 H 70-105 MG/DL Calcium Level 8.9 8.5-10.1 MG/DL Magnesium Level 1.8 1.6-2.4 MG/DL (ANIBAL RODRIGUEZ) My Orders Orders - ANIBAL RODRIGUEZ Ketamine Syringe (Ed Only) (Ketamine Syr (11/17/19 18:45) Fentanyl Injection (Sublimaze Injection (11/17/19 18:45) Lorazepam Injection (Ativan Injection) (11/17/19 18:45) (ANIBAL RODRIGUEZ) Medications Given in ED Current Medications Medications Dose Ordered Sig/Steve Route Start Time Stop Time Status Last Admin Dose Admin Fentanyl Citrate 75 mcg ONCE ONCE IVP 11/17/19 18:45 11/17/19 18:46 DC 11/17/19 18:58 75 MCG Ketamine HCl 25 mg ONCE ONCE IV 11/17/19 18:45 11/17/19 18:46 DC 11/17/19 18:57 25 MG Ketorolac Tromethamine 10 mg ONCE ONCE IVP 11/17/19 17:45 11/17/19 17:46 DC 11/17/19 17:47 10 MG Lorazepam 0.5 mg ONCE ONCE IVP 11/17/19 18:45 11/17/19 18:46 DC 11/17/19 18:58 0.5 MG Promethazine HCl 25 mg ONCE ONCE IVP 11/17/19 17:30 11/17/19 17:31 DC 11/17/19 17:44 25 MG Sodium Chloride 1,000 ml @ 0 mls/hr Q0M ONCE IV 11/17/19 17:24 11/17/19 17:27 DC 11/17/19 17:48 1,000 MLS/HR (ANIBAL RODRIGUEZ) Vital Signs/I&O 11/17/19 16:56 Temp 37.3 Pulse 112 Resp 18 B/P (MAP) 182/116 (138) Pulse Ox 98 (ANIBAL RODRIGUEZ) Blood Pressure Mean: 138 Progress Progress Note : Time: 17:48 Progress Note Patient was seen and examined. She is mildly tachycardic so IV fluids have been ordered. Low-dose Toradol and Phenergan will be used for symptom management initially. We will also check basic labs. (ZAC ENCINAS MD) Progress Note : Time: 18:44 Progress Note Assumed care of the patient at shift change. She was given a small dose of Toradol, Phenergan and she did have interval improvement in her nausea which is gone but she says her headache has not improved. She says any movement makes it worse. 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 She uses morphine 30 mg twice a day and occasionally she'll take an extra 15 mg dose. Opiates helped the past. Tripped and made her headaches worse in the past. I suspect this is less likely migraine headaches and more likely related to her traumatic brain injury. Plan to give her ketamine, fentanyl and a little dose of Ativan. This has worked well in the past. Labs have been reviewed and are unremarkable. Patient says she is not diabetic. However since she only gets a headache once every 2-3 months since starting the amitriptyline I do not dexamethasone has a huge role in the treatment of her acute headache. (ANIBAL RODRIGUEZ) Departure Impression Primary Impression: Migraine Qualified Codes: G43.909 - Migraine, unspecified, not intractable, without status migrainosus Additional Impression: Nausea and vomiting Qualified Codes: R11.2 - Nausea with vomiting, unspecified Disposition: 01 HOME, SELF-CARE Condition: Improved Departure-Patient Inst. Decision time for Depature: 19:59 (ANIBAL RODRIGUEZ) Referrals: JUAN DAVID WELSH MD (PCP/Family) Primary Care Physician Patient Instructions: Headache, Adult (DC) Add. Discharge Instructions: Go home take one or 2 tablets of Benadryl and get some sleep. Tylenol 1000 mg every 8 hours as needed for headache. All discharge instructions reviewed with patient and/or family. Voiced understanding. Work/School Note: Work Release Form Date Seen in the Emergency Department: Nov 17, 2019 Return to Work: Nov 19, 2019 Restrictions: No Restrictions ZAC ENCINAS MD Nov 17, 2019 17:36 ANIBAL RODRIGUEZ Nov 17, 2019 18:47
[2019-11-17] MEDS ORDERED: KETOROLAC 30 MG/ML VIAL IVP ONE (17:45)
[2019-11-17 17:58] LABS: BASOPHILS % (AUTO) 1 % (0-10); EOSINOPHILS # (AUTO) 0.1 10^3/uL (0.0-0.3); EOSINOPHILS % (AUTO) 2 % (0-10); HEMATOCRIT 39 % (35-52); HEMOGLOBIN 12.7 G/DL (11.5-16.0); LYMPHOCYTES # (AUTO) 2.2 X 10^3 (1.0-4.0); LYMPHOCYTES % (AUTO) 34 % (12-44); MEAN CORPUSCULAR HEMOGLOBIN 30 PG (25-34); MEAN CORPUSCULAR HGB CONC 33 G/DL (32-36); MEAN CORPUSCULAR VOLUME 91 FL (80-99); MEAN PLATELET VOLUME 9.2 FL (7.4-10.4); MONOCYTES # (AUTO) 0.6 X 10^3 (0.0-1.0); MONOCYTES % (AUTO) 9 % (0-12); NEUTROPHILS # (AUTO) 3.5 X 10^3 (1.8-7.8); NEUTROPHILS % (AUTO) 55 % (42-75); PLATELET COUNT 429 10^3/uL (130-400); RED CELL DISTRIBUTION WIDTH 14.3 % (10.0-14.5); WHITE BLOOD COUNT 6.4 10^3/uL (4.3-11.0)
[2019-11-17 18:16] LABS: BUN/CREATININE RATIO 13; CALCIUM 8.9 MG/DL (8.5-10.1); CARBON DIOXIDE 24 MMOL/L (21-32); CHLORIDE 105 MMOL/L (98-107); CREATININE SERUM 0.62 MG/DL (0.60-1.30); GFR ESTIMATED > 60; GLUCOSE 110 MG/DL (70-105); MAGNESIUM 1.8 MG/DL (1.6-2.4); SODIUM 142 MMOL/L (135-145)
[2019-11-17] MEDS ORDERED: fentaNYL INJECTION 100 MCG/2 ML AMP IVP ONE (18:45)
[2019-11-17] MEDS ORDERED: KETAMINE/NaCl 50 MG/5 ML SYRINGE (ED ONLY) IV ONE (18:45)
[2019-11-17] MEDS ORDERED: LORazepam INJ 2 MG/ML (ATIVAN) VIAL IVP ONE (18:45)
--- NOTE | 2019-11-17 18:46 | NUR ---
REPORT AND CARE OF PATIENT GIVEN TO MICHELLE
[2019-11-17 20:18] VITALS: BP 153/101
== END 2019-11-17 20:23 | disposition home or self-care (01) ==
LOC: EDUNIT# 16:52 → ER 16:53
DX: G43.909 Migraine, unspecified, not intractable, without status migrainosus (principal); S06.9X9S Unspecified intracranial injury with loss of consciousness of unspecified duration, sequela; S02.91XS Unspecified fracture of skull, sequela; L88 Pyoderma gangrenosum; J42 Unspecified chronic bronchitis; I10 Essential (primary) hypertension; K21.9 Gastro-esophageal reflux disease without esophagitis; M19.91 Primary osteoarthritis, unspecified site; M54.9 Dorsalgia, unspecified; E11.9 Type 2 diabetes mellitus without complications; F41.9 Anxiety disorder, unspecified; F32.9 Major depressive disorder, single episode, unspecified; Z90.49 Acquired absence of other specified parts of digestive tract; Z90.710 Acquired absence of both cervix and uterus; Z90.722 Acquired absence of ovaries, bilateral; X58.XXXS Exposure to other specified factors, sequela
CPT/HCPCS: 36415; 80048; 83735; 85025

== ENCOUNTER 2019-12-21 12:47 | Emergency (ER) | payer MEDICARE ==
[~2019-12-21] VITALS: Ht 165.1 cm; Wt 109.1 kg
[2019-12-21] MEDS ORDERED: PROCHLORPERAZINE 10 MG/2ML INJ (COMPAZINE) IV ONE (13:00)
[2019-12-21] MEDS ORDERED: diphenhydrAMINE 50 MG/ML INJ (BENADRYL) IVP ONE (13:00)
[2019-12-21] MEDS ORDERED: NS IV 1000 ML 1,000 ML IV SCH (13:00)
--- NOTE | 2019-12-21 13:01 | ED Headache ---
General Stated Complaint: HEADACHE / VOMITING Source: patient Exam Limitations: no limitations History of Present Illness Date Seen by Provider: Dec 21, 2019 Time Seen by Provider: 12:58 Initial Comments To ER with a headache since no fever no chills no injury. History of headaches. Takes amitriptyline for them, takes morphine for her chronic auto immune disorder, took one of these morphine about 6 AM this morning. No improvement. She has nausea. Timing/Duration: constant Severity/Quality: moderate Location: global Prior Headaches/Recent Trauma: frequent headaches Associated Symptoms: nausea/vomiting Allergies and Home Medications Allergies Coded Allergies: Tetracyclines (Verified Allergy, Unknown, 10/02/19) adhesive tape (Verified Allergy, Unknown, 10/02/19) azithromycin (Verified Allergy, Unknown, 10/02/19) doxycycline (Verified Allergy, Unknown, 10/02/19) niacin (Verified Allergy, Unknown, 10/02/19) Uncoded Allergies: "CYCLINES" (Allergy, Mild, 10/13/09) Home Medications Albuterol Sulfate 8.5 Gm Hfa.aer.ad, 2-4 PUFF IH Q4H PRN for SHORTNESS OF BREATH Prescribed by: ZAC ROBLERO on 02/22/16 1210 Albuterol Sulfate 2.5 Mg/3 Ml Vial.neb, 2.5 MG IH Q4H Every 4 hrs scheduled x 24 hours. Every 2 hrs as needed for SOA Prescribed by: ZAC ROBLERO on 02/22/16 1210 Alprazolam 0.5 Mg Tablet, 0.25 MG PO BID PRN for ANXIETY, (Reported) take 1/2 of .5mg tab Amitriptyline HCl 25 Mg Tablet, 25 MG PO HS, (Reported) Atorvastatin Calcium 20 Mg Tablet, 20 MG PO HS, (Reported) Citalopram Hydrobromide 40 Mg Tablet, 40 MG PO HS, (Reported) Folic Acid 1 Mg Tablet, 5 MG PO SuMoTuThFrSa, (Reported) Hydrochlorothiazide 25 Mg Tablet, 25 MG PO DAILY, (Reported) Linaclotide 290 Mcg Capsule, 290 MCG PO DAILY PRN for CONSTIPATION-1ST LINE, (Reported) Methotrexate Sodium 2.5 Mg Tablet, 15 MG PO WEEK, (Reported) TAKE 6 (2.5MG) TABS ON MONDAY Metoprolol Succinate 50 Mg Tab.er.24h, 50 MG PO BID, (Reported) Morphine Sulfate 30 Mg Tablet.er, 30 MG PO BID, (Reported) Morphine Sulfate 15 Mg Tablet.er, 15 MG PO DAILY@1200, (Reported) Pantoprazole Sodium 20 Mg Tablet.dr, 20 MG PO BID Prescribed by: ANIBAL RODRIGUEZ on 08/25/19 4760 Patient Home Medication List Home Medication List Reviewed: Yes Review of Systems Review of Systems Constitutional: see HPI Eyes: No Symptoms Reported Ears, Nose, Mouth, Throat: no symptoms reported Respiratory: no symptoms reported Cardiovascular: no symptoms reported Genitourinary: no symptoms reported Musculoskeletal: no symptoms reported Psychiatric/Neurological: See HPI, Headache Past Kpupufh-Tdmtga-Ngvozm Hx Patient Social History Alcohol Beverage of Choice: Wine 2nd Hand Smoke Exposure: No Recent Foreign Travel: No Contact w/Someone Who Travel: No Recent Hopitalizations: No Immunizations Up To Date Tetanus Booster (TDap): Less than 5yrs Date of Pneumonia Vaccine: Apr 28, 2016 Date of Influenza Vaccine: Jun 02, 2015 Seasonal Allergies Seasonal Allergies: Yes Past Medical History Surgeries: Yes (SPINAL LIPOMAS REMOVED, ABD ADHESIONS, abdomnalnecrotic tissue debrided, ) Abdominal, Appendectomy, Section, Ear Surgery, Gallbladder, Hysterectomy, Oophorectomy, Orthopedic, Tubal Ligation Respiratory: Yes Asthma, Chronic Bronchitis Cardiac: Yes Hypertension Neurological: Yes Headaches /Migraines 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 Disorders: No Female 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 Disorders: 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 Sexually Transmitted Disease: No HIV/AIDS: No Genitourinary: Yes Kidney Infection Gastrointestinal: Yes (INCARCERATED HERNIA) Abdominal Hernia, Gastroesophageal Reflux, Chronic Diarrhea, Ulcer, Irritable Bowel Musculoskeletal: Yes (BUNIONECTOMY,HAMMER TOE REPAIR, L KNEE) Arthritis, Chronic Back Pain Endocrine: Yes Diabetes, Non-Insulin dep HEENT: No (GLASSES) Loss of Vision: Denies Hearing Impairment: Denies Cancer: No Psychosocial: Yes Anxiety, Depression Integumentary: Yes (pyodermic gangrenosum, 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) Blood Disorders: Yes (monoclonal gammopathy) Adverse Reaction/Blood Tranf: No (N/A) Family Medical History Cancer 19 FATHER, (PROSTATE CANCER) Family history: Diabetes mellitus G8 BROTHER Hearing loss G8 SISTER Heart disease 19 MOTHER (STENTS) Heart Disease, Cancer, Diabetes, Hypertension Physical Exam Vital Signs Vital Signs - First Documented 12/21/19 12:50 Temp 36.4 Pulse 103 Resp 18 B/P (MAP) 137/86 (103) Pulse Ox 96 O2 Delivery Room Air Capillary Refill : Height, Weight, BMI Height: 5'5.00" Weight: 216lbs. 0.0oz. 97.747463uq; 39.00 BMI Method:Stated General Appearance: WD/WN, no apparent distress HEENT: PERRL/EOMI, normal ENT inspection, TMs normal Neck: non-tender, full range of motion Respiratory: no respiratory distress, no accessory muscle use Extremities: normal range of motion, non-tender Psychiatric: alert, oriented x 3 Crainal Nerves: normal hearing, normal speech, PERRL Skin: normal color, warm/dry Progress/Results/Core Measures Results/Orders My Orders Orders - GARETH RAPP APRN Ed Iv/Invasive Line Start (12/21/19 12:57) Ns Iv 1000 Ml (Sodium Chloride 0.9%) (12/21/19 13:00) Diphenhydramine Injection (Benadryl Inje (12/21/19 13:00) Prochlorperazine Injection (Compazine In (12/21/19 13:00) Medications Given in ED Current Medications Medications Dose Ordered Sig/Steve Route Start Time Stop Time Status Last Admin Dose Admin Diphenhydramine HCl 25 mg ONCE ONCE IVP 12/21/19 13:00 12/21/19 13:01 DC 12/21/19 13:08 25 MG Prochlorperazine Edisylate 10 mg ONCE ONCE IV 12/21/19 13:00 12/21/19 13:01 DC 12/21/19 13:08 10 MG Vital Signs/I&O 12/21/19 12:50 Temp 36.4 Pulse 103 Resp 18 B/P (MAP) 137/86 (103) Pulse Ox 96 O2 Delivery Room Air Departure Impression Primary Impression: Headache Qualified Codes: R51 - Headache Disposition: 01 HOME, SELF-CARE Condition: Stable Departure-Patient Inst. Decision time for Depature: 13:00 Referrals: JUAN DAVID WELSH MD (PCP/Family) Primary Care Physician Patient Instructions: Headache, Adult (DC) Add. Discharge Instructions: 1. Return to ER for any concerns 2. Follow-up with your doctor next week 3. GARETH RAPP APRN Dec 21, 2019 13:00
[2019-12-21] MEDS ORDERED: SUMAtriptan 6 MG/0.5 ML (IMITREX) INJ SQ ONE (13:30)
[2019-12-21 13:50] VITALS: BP 133/83
== END 2019-12-21 13:51 | disposition home or self-care (01) ==
LOC: EDUNIT# 12:47 → ER 12:49
DX: R51 Headache (principal); J44.9 Chronic obstructive pulmonary disease, unspecified; I10 Essential (primary) hypertension; K58.9 Irritable bowel syndrome, unspecified; F41.9 Anxiety disorder, unspecified; F32.9 Major depressive disorder, single episode, unspecified; D89.89 Other specified disorders involving the immune mechanism, not elsewhere classified; Z86.69 Personal history of other diseases of the nervous system and sense organs; Z80.42 Family history of malignant neoplasm of prostate; Z82.49 Family history of ischemic heart disease and other diseases of the circulatory system; Z88.1 Allergy status to other antibiotic agents; Z88.8 Allergy status to other drugs, medicaments and biological substances

== ENCOUNTER 2020-03-23 14:55 | Emergency (ER) | payer MEDICARE ==
[~2020-03-23] VITALS: Ht 165 cm; Wt 108.0 kg
--- NOTE | 2020-03-23 15:32 | ED Chest Pain ---
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 Nursing Sepsis Screen: No Definite Risk Source: patient Exam Limitations: no limitations (KRUNAL SEGOVIA MD) History of Present Illness Date Seen by Provider: Mar 23, 2020 Time Seen by Provider: 15:09 Initial Comments Here with complaint of chest pain and shortness of breath started about an hour prior to arrival. Arrives feeling dyspneic. Patient does have autoimmune disorder and is on methotrexate. States the pain is left-sided and goes up to her left ear through the neck and jaw. Reports chills and is mildly febrile. Denies nausea or vomiting. Denies dysuria or diarrhea. Timing/Duration: constant Severity/Quality: moderate, aching, pressure Location: central Radiation: jaw, neck Activities at Onset: none Prior CP/Workup: no prior chest pain Modifying Factors: improves with rest ASA po PERCH MENDER: No NTG SL PERCH MENDER: No Associated Symptoms: No abdominal pain, No back pain, No diaphoresis; fever/chills; No nausea/vomiting; shortness of breath, weakness (KRUNAL SEGOVIA MD) Allergies and Home Medications Allergies Coded Allergies: Tetracyclines (Verified Allergy, Unknown, 10/02/19) adhesive tape (Verified Allergy, Unknown, 10/02/19) azithromycin (Verified Allergy, Unknown, 10/02/19) doxycycline (Verified Allergy, Unknown, 10/02/19) niacin (Verified Allergy, Unknown, 10/02/19) Uncoded Allergies: "CYCLINES" (Allergy, Mild, 10/13/09) Home Medications Albuterol Sulfate 8.5 Gm Hfa.aer.ad, 2-4 PUFF IH Q4H PRN for SHORTNESS OF BREATH Prescribed by: ZAC ROBLERO on 02/22/16 1210 Albuterol Sulfate 2.5 Mg/3 Ml Vial.neb, 2.5 MG IH Q4H Every 4 hrs scheduled x 24 hours. Every 2 hrs as needed for SOA Prescribed by: ZAC ROBLERO on 02/22/16 1210 Alprazolam 0.5 Mg Tablet, 0.25 MG PO BID PRN for ANXIETY, (Reported) take 1/2 of .5mg tab Amitriptyline HCl 25 Mg Tablet, 25 MG PO HS, (Reported) Atorvastatin Calcium 20 Mg Tablet, 20 MG PO HS, (Reported) Citalopram Hydrobromide 40 Mg Tablet, 40 MG PO HS, (Reported) Folic Acid 1 Mg Tablet, 5 MG PO SuMoTuThFrSa, (Reported) Hydrochlorothiazide 25 Mg Tablet, 25 MG PO DAILY, (Reported) Linaclotide 290 Mcg Capsule, 290 MCG PO DAILY PRN for CONSTIPATION-1ST LINE, (Reported) Methotrexate Sodium 2.5 Mg Tablet, 15 MG PO WEEK, (Reported) TAKE 6 (2.5MG) TABS ON MONDAY Metoprolol Succinate 50 Mg Tab.er.24h, 50 MG PO BID, (Reported) Morphine Sulfate 30 Mg Tablet.er, 30 MG PO BID, (Reported) Morphine Sulfate 15 Mg Tablet.er, 15 MG PO DAILY@1200, (Reported) Pantoprazole Sodium 20 Mg Tablet.dr, 20 MG PO BID Prescribed by: ANIBAL RODRIGUEZ on 08/25/19 0954 Patient Home Medication List Home Medication List Reviewed: Yes (KRUNAL SEGOVIA MD) Review of Systems Review of Systems Constitutional: see HPI, chills, fever EENTM: No Symptoms Reported Respiratory: See HPI Cardiovascular: See HPI Gastrointestinal: Denies Abdominal Pain, Denies Diarrhea, Denies Nausea Genitourinary: No Symptoms Reported Musculoskeletal: see HPI, muscle pain, neck pain Skin: no symptoms reported Endocrine: See HPI (KRUNAL SEGOVIA MD) All Other Systems Reviewed Negative Unless Noted: Yes (KRUNAL SEGOVIA MD) Past Rcimsjm-Exdjlh-Bdwxdl Hx Past Med/Social Hx: Reviewed Nursing Past Med/Soc Hx (KRUNAL SEGOVIA MD) Patient Social History Alcohol Use: Denies Use Number of Drinks Today: Alcohol Beverage of Choice: Wine Recreational Drug Use: No Smoking Status: Former Smoker Former Smoker, Quit: Feb 25, 1985 2nd Hand Smoke Exposure: No Recent Foreign Travel: No Contact w/Someone Who Travel: No Recent Infectious Disease Expo: No Recent Hopitalizations: No Physical Abuse: No Sexual Abuse: No Mistreated: No Fear: No (KRUNAL SEGOVIA MD) Immunizations Up To Date Tetanus Booster (TDap): Less than 5yrs Date of Pneumonia Vaccine: Apr 28, 2016 Date of Influenza Vaccine: Jun 02, 2015 (KRUNAL SEGOVIA MD) Seasonal Allergies Seasonal Allergies: Yes (KRUNAL SEGOVIA MD) Past Medical History Surgeries: Yes (SPINAL LIPOMAS REMOVED, ABD ADHESIONS, abdomnalnecrotic tissue debrided, ) Abdominal, Appendectomy, Section, Ear Surgery, Gallbladder, Hysterectomy, Oophorectomy, Orthopedic, Tubal Ligation Respiratory: Yes Asthma, Chronic Bronchitis Cardiac: Yes Hypertension Neurological: Yes Headaches /Migraines 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 Disorders: No Female 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 Disorders: Denies 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 Sexually Transmitted Disease: No HIV/AIDS: No Genitourinary: Yes Kidney Infection Gastrointestinal: Yes (INCARCERATED HERNIA) Abdominal Hernia, Gastroesophageal Reflux, Chronic Diarrhea, Ulcer, Irritable Bowel Musculoskeletal: Yes (BUNIONECTOMY,HAMMER TOE REPAIR, L KNEE) Arthritis, Chronic Back Pain Endocrine: Yes Diabetes, Non-Insulin dep HEENT: No (GLASSES) Loss of Vision: Denies Hearing Impairment: Denies Cancer: No Psychosocial: Yes Anxiety, Depression Integumentary: Yes (pyodermic gangrenosum, 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) Blood Disorders: Yes (monoclonal gammopathy) Adverse Reaction/Blood Tranf: No (N/A) (KRUNAL SEGOVIA MD) Family Medical History Reviewed Nursing Family Hx (KRUNAL SEGOVIA MD) Cancer 19 FATHER, (PROSTATE CANCER) Family history: Diabetes mellitus G8 BROTHER Hearing loss G8 SISTER Heart disease 19 MOTHER (STENTS) Heart Disease, Cancer, Diabetes, Hypertension (KRUNAL SEGOVIA MD) Physical Exam Vital Signs Vital Signs - First Documented 03/23/20 15:12 Temp 37.8 Pulse 87 Resp 22 B/P (MAP) 134/90 (105) Pulse Ox 97 O2 Delivery Room Air (GARETH RAPP APRN) Vital Signs Capillary Refill : Less Than 3 Seconds (KRUNAL SEGOVIA MD) Height, Weight, BMI Height: 5'5.00" Weight: 216lbs. 0.0oz. 97.584187tv; 39.00 BMI Method:Stated General Appearance: No Apparent Distress, WD/WN HEENT: PERRL/EOMI, Pharynx Normal Neck: Non Tender, Supple Respiratory: Lungs Clear, Normal Breath Sounds Cardiovascular: Regular Rate, Rhythm, No Murmur Gastrointestinal: Non Tender, Soft Extremity: Normal Range of Motion, Non Tender Neurologic/Psychiatric: Alert, Oriented x3 Skin: Normal Color, Warm/Dry (KRUNAL SEGOVIA MD) Focused Exam Lactate Level 03/23/20 15:48: Lactic Acid Level 2.30*H 03/23/20 17:30: Lactic Acid Level 1.20 (GARETH RAPP APRN) Lactic Acid Level Laboratory Tests Test 03/23/20 15:48 03/23/20 17:30 Lactic Acid Level 2.30 MMOL/L (0.50-2.00) *H 1.20 MMOL/L (0.50-2.00) (GARETH RAPP APRN) Progress/Results/Core Measures Results/Orders Lab Results Laboratory Tests Test 03/23/20 15:25 03/23/20 15:48 03/23/20 17:30 Range/Units White Blood Count 8.8 4.3-11.0 10^3/uL Red Blood Count 4.77 4.35-5.85 10^6/uL Hemoglobin 13.9 11.5-16.0 G/DL Hematocrit 41 35-52 % Mean Corpuscular Volume 86 80-99 FL Mean Corpuscular Hemoglobin 29 25-34 PG Mean Corpuscular Hemoglobin Concent 34 32-36 G/DL Red Cell Distribution Width 13.9 10.0-14.5 % Platelet Count 408 H 130-400 10^3/uL Mean Platelet Volume 10.1 7.4-10.4 FL Neutrophils (%) (Auto) 52 42-75 % Lymphocytes (%) (Auto) 37 12-44 % Monocytes (%) (Auto) 10 0-12 % Eosinophils (%) (Auto) 1 0-10 % Basophils (%) (Auto) 1 0-10 % Neutrophils # (Auto) 4.6 1.8-7.8 X 10^3 Lymphocytes # (Auto) 3.2 1.0-4.0 X 10^3 Monocytes # (Auto) 0.9 0.0-1.0 X 10^3 Eosinophils # (Auto) 0.0 0.0-0.3 10^3/uL Basophils # (Auto) 0.1 0.0-0.1 10^3/uL Erythrocyte Sedimentation Rate 9 0-30 MM/HR Prothrombin Time 13.0 12.2-14.7 SEC INR Comment 0.9 0.8-1.4 Activated Partial Thromboplast Time 29 24-35 SEC D-Dimer 0.26 0.00-0.49 UG/ML Sodium Level 144 135-145 MMOL/L Potassium Level 3.1 L 3.6-5.0 MMOL/L Chloride Level 107 98-107 MMOL/L Carbon Dioxide Level 24 21-32 MMOL/L Anion Gap 13 5-14 MMOL/L Blood Urea Nitrogen 12 7-18 MG/DL Creatinine 0.74 0.60-1.30 MG/DL Estimat Glomerular Filtration Rate > 60 BUN/Creatinine Ratio 16 Glucose Level 93 70-105 MG/DL Calcium Level 9.4 8.5-10.1 MG/DL Corrected Calcium 9.3 8.5-10.1 MG/DL Magnesium Level 1.7 1.6-2.4 MG/DL Total Bilirubin 0.5 0.1-1.0 MG/DL Aspartate Amino Transf (AST/SGOT) 15 5-34 U/L Alanine Aminotransferase (ALT/SGPT) 19 0-55 U/L Alkaline Phosphatase 106 40-136 U/L Lactate Dehydrogenase 233 H 125-220 U/L Myoglobin 17.4 10.0-92.0 NG/ML Troponin I < 0.028 < 0.028 <0.028 NG/ML C-Reactive Protein High Sensitivity 0.23 0.00-0.50 MG/DL B-Type Natriuretic Peptide 64.8 <100.0 PG/ML Total Protein 6.8 6.4-8.2 GM/DL Albumin 4.1 3.2-4.5 GM/DL Procalcitonin 0.01 <0.10 NG/ML Lactic Acid Level 2.30 *H 1.20 0.50-2.00 MMOL/L (GARETH RAPP APRN) Medications Given in ED Current Medications Medications Dose Ordered Sig/Steve Route Start Time Stop Time Status Last Admin Dose Admin Aspirin 324 mg ONCE ONCE PO 03/23/20 15:45 03/23/20 15:46 DC 03/23/20 15:47 324 MG Sodium Chloride 1,000 ml @ 0 mls/hr Q0M ONCE IV 03/23/20 16:34 03/23/20 16:35 DC 03/23/20 16:52 1,000 MLS/HR (GARETH RAPP APRN) Vital Signs/I&O 03/23/20 03/23/20 15:12 15:20 Temp 37.8 Pulse 87 Resp 22 B/P (MAP) 134/90 (105) Pulse Ox 97 O2 Delivery Room Air Room Air (RAPPGARETH APRN) Blood Pressure Mean: 105 Progress Progress Note : Progress Note Seen and evaluated. IV, labs, chest x-ray, ASA 324 mg by mouth ordered. Monitor patient. 1636: Normal saline 1 L bolus ordered. Initial set of troponin negative. Lactic acid slightly elevated which may be secondary to her work of breathing and/or methotrexate. We will recheck both troponin and lactic acid at the two-hour marisa and determine disposition from there. Monitor patient. (KRUNAL SEGOVIA MD) Initial ECG Impression Date: Mar 23, 2020 Initial ECG Impression Time: 15:18 Initial ECG Rate: 88 Initial ECG Rhythm: Normal Sinus Initial ECG Comparisson: Unchanged Comment Sinus rhythm with normal axis. No evidence of ST elevation MO. Similar to previous of 02/08/18. Interpreted by me. (KRUNAL SEGOVIA MD) Diagnostic Imaging Diagonstic Imaging: Xray Plain Films/CT/US/NM/MRI: chest Comments NAME: CRAIG DUNN [facility] REC#: [id number] PT STATUS: REG ER : 1965 PHYSICIAN: KRUNAL SEGOVIA MD ADMIT DATE: 03/23/20/ER Draft Date of Exam:03/23/20 CHEST 1 VIEW, AP/PA ONLY INDICATION: Chest pain, shortness of breath. COMPARISON: February 22, 2016. TECHNIQUE: Single radiograph of the chest dated March 23, 2020. FINDINGS: The cardiac silhouette is within normal limits in size. No significant pulmonary vascular congestion. Azygos lobe fissure is incidentally noted. The lungs are clear of focal pulmonary vascularity. No pleural effusion. No pneumothorax. No acute osseous abnormality. IMPRESSION: Similar-appearing examination without acute cardiopulmonary abnormality. Dictated on workstation # [id number] Dict: 03/23/20 1628 Trans: 03/23/20 1633 [facility] [id number] Interpreted by: RAINE ALEJO MD Electronically signed by: (KRUNAL SEGOVIA MD) Departure Impression Primary Impression: Chest pain Qualified Codes: R07.9 - Chest pain, unspecified Disposition: 01 HOME, SELF-CARE Condition: Stable Departure-Patient Inst. Decision time for Depature: 18:19 (GARETH RAPP APRN) Referrals: JUAN DAVID WELSH MD (PCP/Family) Primary Care Physician Patient Instructions: Chest Pain KRUNAL SEGOVIA MD Mar 23, 2020 15:32 GARETH RAPP APRN Mar 23, 2020 18:19
[2020-03-23 15:39] LABS: BASOPHILS # (AUTO) 0.1 10^3/uL (0.0-0.1); BASOPHILS % (AUTO) 1 % (0-10); EOSINOPHILS % (AUTO) 1 % (0-10); HEMATOCRIT 41 % (35-52); HEMOGLOBIN 13.9 G/DL (11.5-16.0); LYMPHOCYTES # (AUTO) 3.2 X 10^3 (1.0-4.0); LYMPHOCYTES % (AUTO) 37 % (12-44); MEAN CORPUSCULAR HEMOGLOBIN 29 PG (25-34); MEAN CORPUSCULAR HGB CONC 34 G/DL (32-36); MEAN CORPUSCULAR VOLUME 86 FL (80-99); MEAN PLATELET VOLUME 10.1 FL (7.4-10.4); MONOCYTES # (AUTO) 0.9 X 10^3 (0.0-1.0); MONOCYTES % (AUTO) 10 % (0-12); NEUTROPHILS # (AUTO) 4.6 X 10^3 (1.8-7.8); NEUTROPHILS % (AUTO) 52 % (42-75); PLATELET COUNT 408 10^3/uL (130-400); RED CELL DISTRIBUTION WIDTH 13.9 % (10.0-14.5); WHITE BLOOD COUNT 8.8 10^3/uL (4.3-11.0)
[2020-03-23] MEDS ORDERED: ASPIRIN 81 MG CHEW (CHILDREN'S ASA) PO ONE (15:45)
[2020-03-23 15:56] LABS: ALBUMIN 4.1 GM/DL (3.2-4.5)
[2020-03-23 15:57] LABS: CHLORIDE 107 MMOL/L (98-107); POTASSIUM 3.1 MMOL/L (3.6-5.0); SODIUM 144 MMOL/L (135-145)
[2020-03-23 15:58] LABS: CALCIUM 9.4 MG/DL (8.5-10.1)
[2020-03-23 15:59] LABS: GLUCOSE 93 MG/DL (70-105); TOTAL PROTEIN 6.8 GM/DL (6.4-8.2)
[2020-03-23 16:00] LABS: CARBON DIOXIDE 24 MMOL/L (21-32)
[2020-03-23 16:01] LABS: BILIRUBIN,TOTAL 0.5 MG/DL (0.1-1.0)
[2020-03-23 16:02] LABS: ALKALINE PHOSPHATASE 106 U/L (40-136); ERYTHROCYTE SEDIMENTATION RATE 9 MM/HR (0-30)
[2020-03-23 16:03] LABS: CREATININE SERUM 0.74 MG/DL (0.60-1.30); GFR ESTIMATED > 60
[2020-03-23 16:04] LABS: BUN/CREATININE RATIO 16
[2020-03-23 16:06] LABS: ALANINE AMINOTRANSFERASE 19 U/L (0-55); MAGNESIUM 1.7 MG/DL (1.6-2.4)
[2020-03-23 16:08] LABS: FIBRIN DEGRADATION PRODUCTS 0.26 UG/ML (0.00-0.49); INR 0.9 (0.8-1.4)
--- NOTE | 2020-03-23 16:33 | Diagnostic Imaging Report ---
INDICATION: Chest pain, shortness of breath. COMPARISON: February 22, 2016. TECHNIQUE: Single radiograph of the chest dated March 23, 2020. FINDINGS: The cardiac silhouette is within normal limits in size. No significant pulmonary vascular congestion. Azygos lobe fissure is incidentally noted. The lungs are clear of focal pulmonary vascularity. No pleural effusion. No pneumothorax. No acute osseous abnormality. IMPRESSION: Similar-appearing examination without acute cardiopulmonary abnormality. Dictated by: Dictated on workstation # [id number]
[2020-03-23] MEDS ORDERED: NS IV 1000 ML 1,000 ML IV ONE (16:34)
[2020-03-23] MEDS ORDERED: KETOROLAC 30 MG/ML VIAL IVP ONE (18:30)
[2020-03-23] MEDS ORDERED: fentaNYL INJECTION 100 MCG/2 ML AMP IVP ONE ×2 (18:30→19:00)
[2020-03-23 19:11] VITALS: BP 130/93
== END 2020-03-23 19:11 | disposition home or self-care (01) ==
LOC: EDUNIT# 14:55 → ER 14:57
DX: R07.9 Chest pain, unspecified (principal); D89.89 Other specified disorders involving the immune mechanism, not elsewhere classified; J45.909 Unspecified asthma, uncomplicated; F41.9 Anxiety disorder, unspecified; F32.9 Major depressive disorder, single episode, unspecified; I10 Essential (primary) hypertension; K58.9 Irritable bowel syndrome, unspecified; K21.9 Gastro-esophageal reflux disease without esophagitis; G89.29 Other chronic pain; M54.9 Dorsalgia, unspecified; Z88.1 Allergy status to other antibiotic agents; Z88.8 Allergy status to other drugs, medicaments and biological substances; Z87.891 Personal history of nicotine dependence; Z82.49 Family history of ischemic heart disease and other diseases of the circulatory system; Z80.42 Family history of malignant neoplasm of prostate; Z79.891 Long term (current) use of opiate analgesic
CPT/HCPCS: 36415; 71045; 80053; 83605; 83615; 83735; 83874; 83880; 84145; 84484; 85025; 85379; 85610; 85652; 85730; 86141; 87040; 93005

== ENCOUNTER 2020-05-20 15:33 | Outpatient (CLI) | payer MEDICARE ==
[~2020-05-20] VITALS: Ht 162.6 cm; Wt 108.6 kg
[~2020-05-20 15:33] MED LIST changes: +OXYC-556 PO; +PANT20TA18 PO; -PANT20TA3 PO; -PANT40TA3 PO; +PANT40TA52 PO
[2020-05-20] MEDS ORDERED: ONDANSETRON 4 MG/2 ML (SDV) Z0FRAN IV ONE (16:00)
[2020-05-20] MEDS ORDERED: ONDANSETRON 4 MG/2 ML (SDV) Z0FRAN IV PRN (16:00)
[2020-05-20] MEDS ORDERED: PROMETHAZINE INJ 25 MG/ML (PHENERGAN) AMP IV PRN (16:00)
[2020-05-20] MEDS ORDERED: metroNIDAZOLE 500 MG/100 ML IVPB (PRE-MIX) IV ONE (16:00)
[2020-05-20] MEDS ORDERED: fentaNYL INJECTION 100 MCG/2 ML AMP IV PRN (16:00)
[2020-05-20] MEDS ORDERED: NS IV 1000 ML 1,000 ML IV ONE (16:00)
[2020-05-20 16:37] LABS: HEMOGLOBIN 15.2 g/dL (11.5-16.0); MEAN PLATELET VOLUME 9.2 fL (9.0-12.2); WHITE BLOOD COUNT 11.5 10^3/uL (4.3-11.0)
[2020-05-20 16:54] LABS: ALBUMIN 4.5 GM/DL (3.2-4.5); BILIRUBIN,TOTAL 0.8 MG/DL (0.1-1.0); CALCIUM 10.1 MG/DL (8.5-10.1); CREATININE SERUM 1.02 MG/DL (0.60-1.30); POTASSIUM 3.7 MMOL/L (3.6-5.0); TOTAL PROTEIN 7.8 GM/DL (6.4-8.2)
[2020-05-20 18:15] VITALS: BP 138/84
[2020-05-20] MEDS ORDERED: BUSP5TAB59 PO (19:14)
[2020-05-20] MEDS ORDERED: LOSARTAN PO (19:14)
== END 2020-05-20 18:15 | disposition home or self-care (01) ==
LOC: SDC 15:33
PROVIDERS: ATTEND Nurse Practitioner Family
DX: K92.1 Melena (principal); R11.2 Nausea with vomiting, unspecified; R19.7 Diarrhea, unspecified
CPT/HCPCS: 36415; 80053; 85027; 86850; 86900; 86901; 96374; 96375

== ENCOUNTER 2020-05-22 00:36 | Emergency (ER) | payer MEDICARE ==
[~2020-05-22] VITALS: Ht 162.5 cm; Wt 106.5 kg
[~2020-05-22 00:36] MED LIST changes: +BUSP5TAB59 PO; +LOSARTAN PO
[2020-05-22] MEDS ORDERED: LACTATED RINGERS 1,000 ML IV ONE (01:31)
[2020-05-22 01:33] LABS: BILIRUBIN,URINE NEGATIVE (NEGATIVE); CLARITY,URINE CLEAR; COLOR,URINE YELLOW; GLUCOSE, URINE (UA) NEGATIVE (NEGATIVE); KETONES,URINE NEGATIVE (NEGATIVE); LEUKOCYTE ESTERASE ,URINE TRACE (NEGATIVE); NITRITE,URINE NEGATIVE (NEGATIVE); PH,URINE 6.5 (5-9); PROTEIN,URINE NEGATIVE (NEGATIVE)
--- NOTE | 2020-05-22 01:38 | ED Abdominal Pain ---
General Chief Complaint: Abdominal/GI Problems Stated Complaint: ABD PAIN,NAUSEA,VOMITING,BLOODY DIARRHEA Nursing Triage Note: TO ED VIA POV AND AMBULATORY TO ROOM 5 WITH C/O ABD PAIN TONIGHT. SEEN AT DR. ESCOBAR'S OFFICE YESTERDAY AND WAS SENT TO DAY SURGERY FOR IVF. N/V INTERMITTENTLY SINCE MONDAY. Sepsis Screen: No Definite Risk Source of Information: Patient Exam Limitations: No Limitations History of Present Illness Date Seen by Provider: May 22, 2020 Time Seen by Provider: 01:22 Initial Comments Patient resents ER by private conveyance with chief complaint for the past 5 days she has been experiencing dark bloody soft, stools, nausea and vomiting and poor oral intake. She saw Dr. Escobar's nurse practitioner who gave her some nausea medicines, IV fluids and put her on Flagyl which she's been on for the past couple days. She has a history of internal hemorrhoids, irritable bowel syndrome and multiple abdominal surgeries including , hernia repairs, appendectomy, cholecystectomy. She had EGD and colonoscopy by Dr. Rogers earlier this year demonstrating some polyps. Patient says this is not bright red bleeding like she usually gets with her hemorrhoid. She's having left lower quadrant abdominal pain. She denies a history of diverticulitis/diverticulosis. Allergies and Home Medications Allergies Coded Allergies: Tetracyclines (Verified Allergy, Unknown, 10/02/19) adhesive tape (Verified Allergy, Unknown, 10/02/19) azithromycin (Verified Allergy, Unknown, 10/02/19) doxycycline (Verified Allergy, Unknown, 10/02/19) duloxetine (Verified Allergy, Unknown, 05/20/20) MENTAL CHANGES niacin (Verified Allergy, Unknown, 10/02/19) Uncoded Allergies: "CYCLINES" (Allergy, Mild, 10/13/09) Home Medications Amitriptyline HCl 25 Mg Tablet, 75 MG PO HS, (Reported) Atorvastatin Calcium 20 Mg Tablet, 20 MG PO HS, (Reported) Buspirone HCl 5 Mg Tablet, 5 MG PO TID, (Reported) Citalopram Hydrobromide 40 Mg Tablet, 40 MG PO HS, (Reported) Folic Acid 1 Mg Tablet, 5 MG PO SuMoTuThFrSa, (Reported) Hydrochlorothiazide 25 Mg Tablet, 25 MG PO DAILY, (Reported) Methotrexate Sodium 2.5 Mg Tablet, 15 MG PO WEEK, (Reported) TAKE 6 (2.5MG) TABS ON MONDAY Metoprolol Succinate 50 Mg Tab.er.24h, 50 MG PO BID, (Reported) Pantoprazole Sodium 20 Mg Tablet.dr, 20 MG PO BID Prescribed by: ANIBAL RODRIGUEZ on 08/25/19 0954 [Losartan] Unknown Strength , Unknown Dose PO DAILY, (Reported) Patient Home Medication List Home Medication List Reviewed: Yes Review of Systems Review of Systems Constitutional: No chills, No diaphoresis EENTM: No Blurred Vision, No Double Vision Respiratory: Denies Cough, Denies Shortness of Air Cardiovascular: Denies Chest Pain, Denies Edema Gastrointestinal: Denies Abdomen Distended; Abdominal Pain; Denies Constipated; Diarrhea, Nausea, Poor Fluid Intake, Vomiting Genitourinary: Denies Burning, Denies Discharge Musculoskeletal: No back pain, No joint pain Skin: No pruritus, No rash Psychiatric/Neurological: Denies Headache, Denies Numbness All Other Systems Reviewed Negative Unless Noted: Yes Past Jzbkehk-Lzspnc-Kkaqdp Hx Patient Social History Alcohol Use: Rarely Uses Number of Drinks Today: HH Alcohol Beverage of Choice: Wine Recreational Drug Use: No Smoking Status: Former Smoker Former Smoker, Quit: Feb 25, 1985 2nd Hand Smoke Exposure: No Recent Foreign Travel: No Contact w/Someone Who Travel: No Recent Infectious Disease Expo: No Recent Hopitalizations: No Physical Abuse: No Sexual Abuse: No Mistreated: No Fear: No Immunizations Up To Date Tetanus Booster (TDap): Less than 5yrs Date of Pneumonia Vaccine: Apr 28, 2016 Date of Influenza Vaccine: Jun 02, 2015 Seasonal Allergies Seasonal Allergies: Yes Past Medical History Surgeries: Yes (SPINAL LIPOMAS REMOVED, ABD ADHESIONS, abdomnalnecrotic tissue debrided, ) Abdominal, Appendectomy, Section, Ear Surgery, Gallbladder, Hysterectomy, Oophorectomy, Orthopedic, Tubal Ligation Respiratory: Yes Asthma, Chronic Bronchitis Cardiac: Yes Hypertension Neurological: Yes Headaches /Migraines 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 Disorders: No Female 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 Sexually Transmitted Disease: No HIV/AIDS: No Genitourinary: Yes Kidney Infection Gastrointestinal: Yes (INCARCERATED HERNIA) Abdominal Hernia, Gastroesophageal Reflux, Chronic Diarrhea, Ulcer, Irritable Bowel Musculoskeletal: Yes (BUNIONECTOMY,HAMMER TOE REPAIR, L KNEE) Arthritis, Chronic Back Pain Endocrine: Yes Diabetes, Non-Insulin dep HEENT: No (GLASSES) Loss of Vision: Denies Hearing Impairment: Denies Cancer: No Psychosocial: Yes Anxiety, Depression Integumentary: Yes (pyodermic gangrenosum, 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 0.0oz. 97.493087nb; 40.00 BMI Method:Stated General Appearance: WD/WN, no apparent distress HEENT: PERRL/EOMI, pharynx normal Neck: full range of motion, normal inspection Respiratory: lungs clear, normal breath sounds, no respiratory distress, no accessory muscle use Cardiovascular: normal peripheral pulses, regular rate, rhythm Peripheral Pulses: 2+ Radial Pulses (R), 2+ Radial Pulses (L) Gastrointestinal: normal bowel sounds, soft, tenderness (mild left-sided abdomen without mass); No mass Neurologic/Psychiatric: alert, normal mood/affect, oriented x 3 Skin: normal color, warm/dry Progress/Results/Core Measures Results/Orders Lab Results Laboratory Tests Test 05/22/20 01:10 05/22/20 02:00 Range/Units Urine Color YELLOW Urine Clarity CLEAR Urine pH 6.5 5-9 Urine Specific [place] 1.015 L 1.016-1.022 Urine Protein NEGATIVE NEGATIVE Urine Glucose (UA) NEGATIVE NEGATIVE Urine Ketones NEGATIVE NEGATIVE Urine Nitrite NEGATIVE NEGATIVE Urine Bilirubin NEGATIVE NEGATIVE Urine Urobilinogen 0.2 < = 1.0 MG/DL Urine Leukocyte Esterase TRACE H NEGATIVE Urine RBC (Auto) NEGATIVE NEGATIVE Urine RBC NONE /HPF Urine WBC 0-2 /HPF Urine Squamous Epithelial Cells 0-2 /HPF Urine Crystals NONE /LPF Urine Bacteria NEGATIVE /HPF Urine Casts NONE /LPF Urine Mucus NEGATIVE /LPF Urine Culture Indicated NO White Blood Count 7.3 4.3-11.0 10^3/uL Red Blood Count 4.39 3.80-5.11 10^6/uL Hemoglobin 12.5 11.5-16.0 g/dL Hematocrit 39 35-52 % Mean Corpuscular Volume 88 80-99 fL Mean Corpuscular Hemoglobin 29 25-34 pg Mean Corpuscular Hemoglobin Concent 32 32-36 g/dL Red Cell Distribution Width 13.6 10.0-14.5 % Platelet Count 372 130-400 10^3/uL Mean Platelet Volume 9.4 9.0-12.2 fL Immature Granulocyte % (Auto) 0 % Neutrophils (%) (Auto) 46 42-75 % Lymphocytes (%) (Auto) 41 12-44 % Monocytes (%) (Auto) 10 0-12 % Eosinophils (%) (Auto) 1 0-10 % Basophils (%) (Auto) 1 0-10 % Neutrophils # (Auto) 3.4 1.8-7.8 10^3/uL Lymphocytes # (Auto) 3.0 1.0-4.0 10^3/uL Monocytes # (Auto) 0.8 0.0-1.0 10^3/uL Eosinophils # (Auto) 0.1 0.0-0.3 10^3/uL Basophils # (Auto) 0.1 0.0-0.1 10^3/uL Immature Granulocyte # (Auto) 0.0 0.0-0.1 10^3/uL Sodium Level 140 135-145 MMOL/L Potassium Level 3.5 L 3.6-5.0 MMOL/L Chloride Level 104 98-107 MMOL/L Carbon Dioxide Level 24 21-32 MMOL/L Anion Gap 12 5-14 MMOL/L Blood Urea Nitrogen 10 7-18 MG/DL Creatinine 0.80 0.60-1.30 MG/DL Estimat Glomerular Filtration Rate > 60 BUN/Creatinine Ratio 13 Glucose Level 113 H 70-105 MG/DL Calcium Level 8.9 8.5-10.1 MG/DL Corrected Calcium 8.8 8.5-10.1 MG/DL Total Bilirubin 0.3 0.1-1.0 MG/DL Aspartate Amino Transf (AST/SGOT) 13 5-34 U/L Alanine Aminotransferase (ALT/SGPT) 17 0-55 U/L Alkaline Phosphatase 79 40-136 U/L Total Protein 6.8 6.4-8.2 GM/DL Albumin 4.1 3.2-4.5 GM/DL Lipase 44 8-78 U/L My Orders Orders - ANIBAL RODRIGUEZ Ua Culture If Indicated (05/22/20 01:10) Cbc With Automated Diff (05/22/20 01:10) Comprehensive Metabolic Panel (05/22/20 01:10) Lipase (05/22/20 01:10) Occult Blood Stool (05/22/20 01:11) Ct Abdomen/Pelvis W (05/22/20 01:31) Ed Iv/Invasive Line Start (05/22/20 01:31) Lactated Ringers (Lr 1000 Ml Iv Solution (05/22/20 01:31) Ondansetron Injection (Zofran Injectio (05/22/20 01:45) Fentanyl Injection (Sublimaze Injection (05/22/20 02:15) Morphine Injection (Morphine Injection (05/22/20 02:32) Iohexol Injection (Omnipaque 350 Mg/Ml 1 (05/22/20 03:15) Received Contrast (Hold Metformin- Contr (05/22/20 03:15) Ns (Ivpb) (Sodium Chloride 0.9% Ivpb Bag (05/22/20 03:15) Sodium Chloride Flush (Catheter Flush Sy (05/22/20 03:15) Medications Given in ED Current Medications Medications Dose Ordered Sig/Steve Route Start Time Stop Time Status Last Admin Dose Admin Fentanyl Citrate 50 mcg ONCE ONCE IVP 05/22/20 02:15 05/22/20 02:16 DC 05/22/20 02:12 50 MCG Iohexol 100 ml ONCE ONCE IV 05/22/20 03:15 05/22/20 03:16 DC 05/22/20 03:12 100 ML Lactated Ringer's 1,000 ml @ 0 mls/hr Q0M ONCE IV 05/22/20 01:31 05/22/20 01:35 DC 05/22/20 02:02 999 MLS/HR Ondansetron HCl 8 mg ONCE ONCE IVP 05/22/20 01:45 05/22/20 01:46 DC 05/22/20 02:02 8 MG Sodium Chloride 10 ml NEEDED PRN IV 05/22/20 03:15 05/22/20 03:13 10 ML Sodium Chloride 100 ml ONCE ONCE IV 05/22/20 03:15 05/22/20 03:16 DC 05/22/20 03:13 80 ML Vital Signs/I&O 05/22/20 01:13 Temp 36.6 Pulse 86 Resp 16 B/P (MAP) 137/88 (104) O2 Delivery Room Air Blood Pressure Mean: 104 Progress Progress Note : Time: 03:34 Progress Note The patient's been on a couple days of antibiotics, Flagyl and I suspect this may explain why she has a mildly thickened sigmoid but no diverticulitis. She probably has diverticulitis and we'll encourage her to continue the antibiotics. She does not need to be inpatient at this time. She has a nonacute abdomen, aseptic vital signs and labs that are acceptable. We'll provide her with some hydrocodone and encourage her to use MiraLAX to stay regular. Diagnostic Imaging Diagonstic Imaging: CT (with IV contrast) Plain Films/CT/US/NM/MRI: abdomen, pelvis Comments Colonic diverticulosis without evidence of acute diverticulitis. Evaluation of colon is limited by underdistention and cannot exclude wall thickening or colitis of the ascending and sigmoid colon. Several small bowel loops without significant dilatation, nonspecific suggesting possibility of enteritis. Hepatic steatosis. Status post cholecystectomy, appendectomy, hysterectomy, ventral hernia repair. 2 cm exophytic left renal cyst mildly increased in size from prior studies. Reviewed: Reviewed [place] Study, Reviewed by Me Departure Impression Primary Impression: Colitis, enteritis, and gastroenteritis of presumed infectious origin Disposition: 01 HOME, SELF-CARE Condition: Stable Departure-Patient Inst. Decision time for Depature: 03:38 Referrals: JUAN DAVID ESCOBAR MD (PCP/Family) Primary Care Physician Patient Instructions: Colitis (DC) Add. Discharge Instructions: Continue the antibiotics as prescribed. MiraLAX as necessary to stay regular. Hydrocodone one tablet every 6 hours as necessary for pain. Follow-up with your primary care doctor if you're not seeing improvement by Monday. All discharge instructions reviewed with patient and/or family. Voiced understanding. Scripts Ondansetron (Ondansetron Odt) 4 Mg Tab.rapdis 4 MG PO Q6H PRN for NAUSEA/VOMITING, #12 TAB 0 Refills Prov: ANIBAL RODRIGUEZ 05/22/20 Work/School Note: Work Release Form Date Seen in the Emergency Department: May 22, 2020 Return to Work: May 25, 2020 Restrictions: No Restrictions ANIBAL RODRIGUEZ May 22, 2020 01:38
[2020-05-22] MEDS ORDERED: ONDANSETRON 4 MG/2 ML (SDV) Z0FRAN IVP ONE (01:45)
[2020-05-22 01:47] LABS: BACTERIA,URINE NEGATIVE /HPF; SQUAMOUS EPITHELIAL CELL,UR 0-2 /HPF; WBC,URINE 0-2 /HPF
[2020-05-22 02:12] LABS: BASOPHILS # (AUTO) 0.1 10^3/uL (0.0-0.1); BASOPHILS % (AUTO) 1 % (0-10); EOSINOPHILS # (AUTO) 0.1 10^3/uL (0.0-0.3); EOSINOPHILS % (AUTO) 1 % (0-10); HEMATOCRIT 39 % (35-52); HEMOGLOBIN 12.5 g/dL (11.5-16.0); LYMPHOCYTES % (AUTO) 41 % (12-44); MEAN CORPUSCULAR HEMOGLOBIN 29 pg (25-34); MEAN CORPUSCULAR HGB CONC 32 g/dL (32-36); MEAN CORPUSCULAR VOLUME 88 fL (80-99); MEAN PLATELET VOLUME 9.4 fL (9.0-12.2); MONOCYTES # (AUTO) 0.8 10^3/uL (0.0-1.0); MONOCYTES % (AUTO) 10 % (0-12); NEUTROPHILS # (AUTO) 3.4 10^3/uL (1.8-7.8); NEUTROPHILS % (AUTO) 46 % (42-75); PLATELET COUNT 372 10^3/uL (130-400); WHITE BLOOD COUNT 7.3 10^3/uL (4.3-11.0)
[2020-05-22] MEDS ORDERED: fentaNYL INJECTION 100 MCG/2 ML AMP IVP ONE (02:15)
[2020-05-22 02:20] LABS: ALBUMIN 4.1 GM/DL (3.2-4.5); CHLORIDE 104 MMOL/L (98-107); POTASSIUM 3.5 MMOL/L (3.6-5.0); SODIUM 140 MMOL/L (135-145)
[2020-05-22 02:21] LABS: CALCIUM 8.9 MG/DL (8.5-10.1)
[2020-05-22 02:22] LABS: GLUCOSE 113 MG/DL (70-105); TOTAL PROTEIN 6.8 GM/DL (6.4-8.2)
[2020-05-22 02:23] LABS: CARBON DIOXIDE 24 MMOL/L (21-32)
[2020-05-22 02:24] LABS: BILIRUBIN,TOTAL 0.3 MG/DL (0.1-1.0)
[2020-05-22 02:26] LABS: ALKALINE PHOSPHATASE 79 U/L (40-136); GFR ESTIMATED > 60
[2020-05-22 02:27] LABS: BUN/CREATININE RATIO 13
[2020-05-22 02:29] LABS: ALANINE AMINOTRANSFERASE 17 U/L (0-55); LIPASE 44 U/L (8-78)
[2020-05-22] MEDS ORDERED: morphine INJ 10 MG/ML 1ML (SYR OR VIAL) IVP STA (02:32)
[2020-05-22] MEDS ORDERED: CATHETER FLUSH 10 ML SYR IV PRN (03:15)
[2020-05-22] MEDS ORDERED: NS 100 ML (IVPB) BAG IV ONE (03:15)
[2020-05-22] MEDS ORDERED: IOHEXOL 350 MG/ML 100 ML (OMNIPAQUE 350) VIAL IV ONE (03:15)
[2020-05-22] MEDS ORDERED: HOLD METFORMIN - RECEIVED CONTRAST 20 ML VIAL IV SCH (03:15)
[2020-05-22] MEDS ORDERED: ACHD5005 PO (03:40)
[2020-05-22] MEDS ORDERED: ONDA4TAB11 PO (03:40)
[2020-05-22] MEDS ORDERED: RX-HYDROCODONE/APAP 5/325 MG #4 TAB PK PO PRN (03:45)
[2020-05-22 03:49] VITALS: BP 130/85
--- NOTE | 2020-05-22 07:13 | Diagnostic Imaging Report ---
PROCEDURE: CT abdomen and pelvis with contrast. TECHNIQUE: Multiple contiguous axial images were obtained through the abdomen and pelvis after administration of intravenous contrast. Auto Exposure Controls were utilized during the CT exam to meet ALARA standards for radiation dose reduction. INDICATION: Rectal bleeding. Abdominal pain. COMPARISON: CT abdomen and pelvis with IV contrast 08/25/2019. FINDINGS: Lung bases are clear. Cholecystectomy. Calcified granulomas in the spleen. The liver, pancreas, adrenals, right kidney, collecting systems and bladder are negative. Hysterectomy. Appendectomy. Ventral hernia repair. Simple cyst in the left kidney. Mild colonic diverticulosis. No evidence of active diverticulitis. No free intraperitoneal air or fluid. No lymphadenopathy. No evidence of bowel obstruction. Osseous structures are intact. IMPRESSION: 1. No acute CT findings in the abdomen or pelvis. 2. Mild colonic diverticulosis without evidence of active diverticulitis. 3. Cholecystectomy. Appendectomy. Hysterectomy. No significant change from preliminary interpretation. Dictated by: Dictated on workstation # [id number]
== END 2020-05-22 03:50 | disposition home or self-care (01) ==
LOC: EDUNIT# 00:36 → ER 00:39
DX: K52.9 Noninfective gastroenteritis and colitis, unspecified (principal); I10 Essential (primary) hypertension; K21.9 Gastro-esophageal reflux disease without esophagitis; F41.9 Anxiety disorder, unspecified; F32.9 Major depressive disorder, single episode, unspecified; Z88.1 Allergy status to other antibiotic agents; Z88.8 Allergy status to other drugs, medicaments and biological substances; Z87.891 Personal history of nicotine dependence; Z80.42 Family history of malignant neoplasm of prostate; Z82.49 Family history of ischemic heart disease and other diseases of the circulatory system
CPT/HCPCS: 36415; 74177; 80053; 81000; 83690; 85025

== ENCOUNTER → 2020-08-07 | Outpatient (CLI) | payer MEDICARE ==
[~2020-08-07] MED LIST changes: +ONDA4TAB11 PO
== END ==
LOC: LABNPT 05:20
PROVIDERS: ATTEND Family Medicine
DX: R50.9 Fever, unspecified (principal); R51.9 Headache, unspecified; Z20.828 Contact with and (suspected) exposure to other viral communicable diseases
CPT/HCPCS: 87635

== ENCOUNTER → 2021-07-05 | Outpatient (CLI) | payer MEDICARE ==
[~2021-07-05] MED LIST changes: -ACYC400T PO; +ACYC400T21 PO; +ESCI20TA39 PO; -ESCI20TA45 PO; -FOLI1TAB24 PO; +FOLI1TAB33 PO; -LISI40TA PO; +LISI40TA9 PO
--- NOTE | 2021-07-05 13:15 | Diagnostic Imaging Report ---
INDICATION: Routine screening. COMPARISON: 05/17/2014 and 06/11/2010. TECHNIQUE: 2D and 3D bilateral screening mammography was performed with CAD. FINDINGS: Scattered fibroglandular densities are identified bilaterally. The parenchymal pattern is stable. No mass or malignant-appearing microcalcifications are seen. The axillae are unremarkable. IMPRESSION: No mammographic features suspicious for malignancy are identified. ACR BI-RADS Category 1: Negative. Result letter will be mailed to the patient. Note: At least 10% of breast cancer is not imaged by mammography. Dictated by: Dictated on workstation # [id number]
== END ==
LOC: RAD 10:42
PROVIDERS: ATTEND Nurse Practitioner Family
DX: Z12.31 Encounter for screening mammogram for malignant neoplasm of breast (principal)
CPT/HCPCS: 77063; 77067

== ENCOUNTER 2021-07-16 21:17 | Emergency (ER) | payer MEDICARE ==
[~2021-07-16] VITALS: Ht 65 cm; Wt 110.2 kg
[2021-07-16 21:30] VITALS: BP 104/72
[2021-07-16] MEDS ORDERED: TETANUS,DIPTH,PERTUSS P/F (BOOSTRIX) 0.5 ML VIAL IM ONE (21:45)
--- NOTE | 2021-07-16 21:55 | Diagnostic Imaging Report ---
HISTORY: Fall, injury to the left humerus. COMPARISON: None. TECHNIQUE: Two views of the left humerus. FINDINGS: No acute fracture or dislocation is seen in the left humerus. Alignment is normal. Joint spaces appear preserved. IMPRESSION: No acute osseous abnormality is seen in the left humerus. Dictated by: Dictated on workstation # [id number]
--- NOTE | 2021-07-16 21:56 | Diagnostic Imaging Report ---
HISTORY: Fall, left shoulder injury. TECHNIQUE: Three views of the left shoulder. COMPARISON: None. FINDINGS: No acute fracture or dislocation is seen in the left shoulder. Alignment appears normal. Joint spaces are generally preserved. IMPRESSION: No acute osseous abnormality is seen in the left shoulder. Dictated by: Dictated on workstation # [id number]
[2021-07-16] MEDS ORDERED: RX-MUPIROCIN (BACTROBAN) 2% OINT 22 GM TUBE TOP STA (22:03)
[2021-07-16] MEDS ORDERED: MUPI22OI2 TP (22:07)
--- NOTE | 2021-07-16 22:07 | ED Upper Extremity ---
General Chief Complaint: Laceration Stated Complaint: FALL/L SHOULDER LAC Nursing Triage Note: Pt arrives via POV from home with c/o left upper arm lac. Pt reports slipping in the shower, states her arm hit the safety bar on the way down. Pt unsure if she hit her head, denies LOC. Pt unsure of last tetanus. Allergies and Home Medications Allergies Coded Allergies: Tetracyclines (Verified Allergy, Unknown, 10/02/19) adhesive tape (Verified Allergy, Unknown, 10/02/19) azithromycin (Verified Allergy, Unknown, 10/02/19) doxycycline (Verified Allergy, Unknown, 10/02/19) duloxetine (Verified Allergy, Unknown, 05/20/20) MENTAL CHANGES niacin (Verified Allergy, Unknown, 10/02/19) Uncoded Allergies: "CYCLINES" (Allergy, Mild, 10/13/09) Patient Home Medication List Amitriptyline HCl (Amitriptyline HCl) 25 Mg Tablet, 75 MG PO HS, (Reported) Entered as Reported by: MELONIE ODOM on 07/01/15 1601 Atorvastatin Calcium (Atorvastatin Calcium) 20 Mg Tablet, 20 MG PO HS, (Reported) Entered as Reported by: AIRAM HERBERT on 05/10/19 1637 Buspirone HCl (Buspirone HCl) 5 Mg Tablet, 5 MG PO TID, (Reported) Entered as Reported by: WILLARD ERAZO on 05/20/20 1914 Citalopram Hydrobromide (Citalopram HBr) 40 Mg Tablet, 40 MG PO HS, (Reported) Entered as Reported by: AIRAM HERBERT on 05/10/19 1637 Folic Acid (Folic Acid) 1 Mg Tablet, [facility], ([facility] Entered as Reported by: GILBERTO GOODWIN on 10/02/19 1333 Hydrochlorothiazide (Hydrochlorothiazide) 25 Mg Tablet, 25 MG PO DAILY, (Reported) Entered as Reported by: MELONIE ODOM on 07/01/15 1601 Hydrocodone/Acetaminophen (Hydrocodone-Acetamin 5-325 mg) 1 Each Tablet, 1 EACH PO Q6H PRN for PAIN-BREAKTHROUGH Prescribed by: ANIBAL RODRIGUEZ on 05/22/20 0340 Methotrexate Sodium (Methotrexate) 2.5 Mg Tablet, 15 MG PO WEEK, (Reported) Entered as Reported by: AIRAM HERBERT on 05/10/19 1637 Metoprolol Succinate (Metoprolol Succinate) 50 Mg Tab.er.24h, 50 MG PO BID, (Reported) Entered as Reported by: MELONIE ODOM on 07/01/15 1601 Mupirocin (Mupirocin) 22 Gm Oint...g., 22 GM TP BID Prescribed by: ROSALBA PAVON on 07/16/21 2207 Ondansetron (Ondansetron Odt) 4 Mg Tab.rapdis, 4 MG PO Q6H PRN for NAUSEA/VOMITING Prescribed by: ANIBAL RODRIGUEZ on 05/22/20 0340 Pantoprazole Sodium (Pantoprazole Sodium) 20 Mg Tablet.dr, 20 MG PO BID Prescribed by: ANIBAL RODRIGUEZ on 08/25/19 0954 [Losartan] Unknown Strength , Unknown Dose PO DAILY, (Reported) Entered as Reported by: WILLARD ERAZO on 05/20/20 1914 Past Pbebncf-Dagnfb-Bhgkcw Hx Patient Social History Tobacco Use?: No Use of E-Cig and/or Vaping dev: No Substance use?: No Alcohol Use?: No Pt feels they are or have been: No Immunizations Up To Date Tetanus Booster (TDap): Less than 5yrs Seasonal Allergies Seasonal Allergies: Yes Past Medical History Surgeries: Yes (SPINAL LIPOMAS REMOVED, ABD ADHESIONS, abdomnalnecrotic tissue debrided, ) Abdominal, Appendectomy, Section, Ear Surgery, Gallbladder, Hysterectomy, Oophorectomy, Orthopedic, Tubal Ligation Respiratory: Yes Asthma, Chronic Bronchitis Cardiac: Yes Hypertension Neurological: Yes Headaches /Migraines 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 Disorders: No Female 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 Sexually Transmitted Disease: No HIV/AIDS: No Genitourinary: Yes Kidney Infection Gastrointestinal: Yes (INCARCERATED HERNIA) Abdominal Hernia, Gastroesophageal Reflux, Chronic Diarrhea, Ulcer, Irritable Bowel Musculoskeletal: Yes (BUNIONECTOMY,HAMMER TOE REPAIR, L KNEE) Arthritis, Chronic Back Pain Endocrine: Yes Diabetes, Non-Insulin dep HEENT: No (GLASSES) Loss of Vision: Denies Hearing Impairment: Denies Cancer: No Psychosocial: Yes Anxiety, Depression Integumentary: Yes (pyodermic gangrenosum, 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) Blood Disorders: Yes (monoclonal gammopathy) Adverse Reaction/Blood Tranf: No (N/A) Family Medical History Cancer 19 FATHER, (PROSTATE CANCER) Family history: Diabetes mellitus G8 BROTHER Hearing loss G8 SISTER Heart disease 19 MOTHER (STENTS) Heart Disease, Cancer, Diabetes, Hypertension Physical Exam Vital Signs Vital Signs - First Documented 07/16/21 21:30 Temp 36.8 Pulse 93 Resp 18 B/P (MAP) 104/72 (83) Pulse Ox 98 O2 Delivery Room Air Capillary Refill : Less Than 3 Seconds Height, Weight, BMI Height: 5'5.00" Weight: 216lbs. 0.0oz. 97.987819oq; 260.00 BMI Method:Stated Progress/Results/Core Measures Results/Orders My Orders Orders - ROSALBA PAVON DO Shoulder, Left, 3 Views (07/16/21 21:37) Humerus, Left, 2 Views (07/16/21 21:37) Dipht,Pertuss(Acell),Tet Adult (Boostrix (07/16/21 21:45) Rx-Mupirocin 2% Oint (Rx-Bactroban) (07/16/21 22:03) Wound Dressing-Ed (07/16/21 22:03) Lidocaine/Epi 1% 1:100,000 (Xylocaine 1% (07/16/21 22:15) Lidocaine/Epi 1% 1:100,000 (Xylocaine /E (07/16/21 22:16) Medications Given in ED Current Medications Medications Dose Ordered Sig/Steve Route Start Time Stop Time Status Last Admin Dose Admin Diphtheria/ Tetanus/Acell Pertussis 0.5 ml ONCE ONCE IM 07/16/21 21:45 07/16/21 21:46 DC 07/16/21 21:55 0.5 ML Lidocaine/ Epinephrine 10 ml ONCE ONCE INJ 07/16/21 22:15 07/16/21 22:16 DC 07/16/21 22:18 10 ML Vital Signs/I&O 07/16/21 21:30 Temp 36.8 Pulse 93 Resp 18 B/P (MAP) 104/72 (83) Pulse Ox 98 O2 Delivery Room Air Blood Pressure Mean: 83 Departure Impression Primary Impression: Contusion of left upper arm, initial encounter Additional Impressions: LEFT UPPER ARM SUPERFICIAL LACERATION AND ABRASIONS Wfpyodkxnm-tirzktjig-axuriuf (DPT) vaccination administered at current visit Disposition: HOME, SELF-CARE Condition: Stable Departure-Patient Inst. Decision time for Depature: 22:05 Referrals: JUAN DAVID WELSH MD (PCP/Family) Primary Care Physician Patient Instructions: Contusion (DC), Diphtheria and Tetanus Toxoids, and Acellular Pertussis Vaccine, Skin Abrasions (DC), Laceration Repair With Stitches (DC) Add. Discharge Instructions: ICE TO AREA AT 20 MINUTE INTERVALS CLEAN WOUND TWICE A DAY WITH ANTIBACTERIAL SOAP AND WATER, APPLY FRESH DRESSING TWICE A DAY TYLENOL AND MOTRIN NEEDED FOR PAIN ELIZABETH REMOVED IN 8-10 DAYS--RETURN TO ER FOR REMOVAL All discharge instructions reviewed with patient and/or family. Voiced understanding. ROSALBA PAVON DO Jul 16, 2021 22:07
[2021-07-16] MEDS ORDERED: LIDOCAINE/EPI 1%-1:100,000 (XYLOCAINE) 10 ML INJ ONE (22:15)
[2021-07-16] MEDS ORDERED: LIDOCAINE/EPI 1%-1:100,000 (XYLOCAINE) 20ML ONE (22:16)
== END 2021-07-16 22:37 | disposition home or self-care (01) ==
LOC: EDUNIT# 21:17 → ER 21:19
DX: S41.112A Laceration without foreign body of left upper arm, initial encounter (principal); J45.909 Unspecified asthma, uncomplicated; I10 Essential (primary) hypertension; F41.9 Anxiety disorder, unspecified; F32.9 Major depressive disorder, single episode, unspecified; E11.9 Type 2 diabetes mellitus without complications; K21.9 Gastro-esophageal reflux disease without esophagitis; G89.29 Other chronic pain; M54.9 Dorsalgia, unspecified; Z23 Encounter for immunization; Z79.899 Other long term (current) drug therapy; Z79.891 Long term (current) use of opiate analgesic; W18.40XA Slipping, tripping and stumbling without falling, unspecified, initial encounter
CPT/HCPCS: 73030; 73060; 90715

== ENCOUNTER 2021-07-24 08:04 | Emergency (ER) | payer MEDICARE ==
[~2021-07-24] VITALS: Ht 165 cm; Wt 108.0 kg
[~2021-07-24 08:04] MED LIST changes: -CITA40TA11 PO; +CITA40TA13 PO; +MUPI22OI2 TP
[2021-07-24 08:20] VITALS: BP 131/84
== END 2021-07-24 08:20 | disposition home or self-care (01) ==
LOC: EDUNIT# 08:04 → ER 08:06
DX: Z48.02 Encounter for removal of sutures (principal)

== ENCOUNTER 2021-09-22 05:30 | Outpatient (CLI) | payer MEDICARE ==
[~2021-09-22] VITALS: Ht 165.1 cm; Wt 109.0 kg
[2021-09-22] MEDS ORDERED: PANT20TA18 PO (09:58)
[2021-09-22] MEDS ORDERED: LOSA25TA41 PO (09:58)
[2021-09-22] MEDS ORDERED: CNC1KV IM (09:58)
== END 2021-09-22 10:12 | disposition home or self-care (01) ==
LOC: PREOP 05:30
PROVIDERS: ATTEND Orthopaedic Surgery
DX: Z01.818 Encounter for other preprocedural examination (principal)

== ENCOUNTER 2021-09-29 05:52 | Day surgery (SDC) | payer MEDICARE ==
--- NOTE | 2021-09-20 21:35 | HISTORY AND PHYSICAL ---
DATE OF SERVICE: ADMISSION HISTORY AND PHYSICAL This will be for outpatient surgery on 09/29/2021 for left shoulder arthroscopy with biceps tenotomy. HISTORY OF PRESENT ILLNESS: The patient is a 55-year-old female with complaints of progressively worsening left shoulder pain. She reports pain on the anterolateral aspect of the shoulder. She reports pain with any overhead activities and resisted activities. She denies numbness or tingling. She has undergone treatment with home exercise program and exercises without relief. An MRI was obtained, which revealed a SLAP tear without full thickness supraspinatus tear, but some tendinopathy noted. Due to functional impairment and failure to improve with conservative measures, the patient elected to proceed with surgical intervention. REVIEW OF SYSTEMS: No chest pain, no shortness of breath, no dysuria. PAST MEDICAL HISTORY: Asthma, back pain, COPD, Crohn's, reflux, hypertension, osteoarthritis, hiatal hernia, liver failure, cataracts, depression, hyperlipidemia, chronic pain syndrome, insomnia, irritable bowel syndrome, pyoderma gangrenosum. PAST SURGICAL HISTORY: Appendectomy, , carpal tunnel, cholecystectomy, hysterectomy, knee arthroscopy, shoulder arthroscopy, tubal ligation, incarcerated hernia with mesh placement, ventral hernia, exploratory laparotomy, lipoma excision, bunionectomy. SOCIAL HISTORY: The patient denies alcohol and tobacco use. FAMILY HISTORY: Noncontributory. PRIMARY CARE PROVIDER: Dr. Escobar. MEDICATIONS: Clobetasol, albuterol, Linzess, methotrexate, hydrochlorothiazide, citalopram, Zofran, stool softener, Voltaren, tacrolimus, losartan, Lipitor, pantoprazole, metoprolol, oxycodone, acyclovir, amitriptyline, cyclobenzaprine. ALLERGIES: DOXYCYCLINE, BEE STINGS, TAPE, TOMATOES, NIACIN, ZITHROMAX, TETRACYCLINE. PHYSICAL EXAMINATION: GENERAL: The patient is well-developed, well-nourished, in no acute distress. HEENT: Normocephalic, atraumatic. Pupils are equal, round and reactive to light. Oropharynx is clear. NECK: Supple, with no lymphadenopathy. LUNGS: Clear to auscultation bilaterally. HEART: Regular rate and rhythm. ABDOMEN: Soft, nontender, nondistended. EXTREMITIES: The left shoulder demonstrates positive Neer's and positive Newman sign. She has weakness with abduction and external rotation with positive Nashville's maneuver. She has a positive Speed's maneuver, forward elevation actively to 140 degrees, external rotation 60 degrees, internal rotation is to her lateral hip. IMPRESSION: Left shoulder SLAP tear with biceps tendinosis. PLAN: Left shoulder arthroscopy with biceps tenotomy, labral debridement. The risks, benefits, options, ramifications and recovery were discussed at length with the patient. She understands and wishes to proceed. Job ID: [id number] DocumentID: [id number] Dictated Date: 09/13/2021 09:36:08 Marketing Teacher Date: 09/13/2021 10:03:12 Dictated By: DIANE PRABHAKAR MD
[2021-09-29] VITALS (12 sets, daily range): BP systolic 115–131; BP diastolic 48–75
[~2021-09-29] VITALS: Ht 165 cm; Wt 109.0 kg
[~2021-09-29 05:52] MED LIST changes: +CNC1KV IM; +LOSA25TA41 PO
[2021-09-29] MEDS: LACTATED RINGERS 1,000 ML IV PRN ×2 (06:37→09:17)
[2021-09-29] MEDS ORDERED: ceFAZolin INJECTION 1,000 MG VIAL IV ONE (06:45)
[2021-09-29] MEDS ORDERED: fentaNYL INJ 100 MCG/2 ML AMP ONE ×2 (07:04→07:05)
[2021-09-29] MEDS ORDERED: SEVOFLURANE (ULTANE) 15 ML INHAL SOLN ONE ×2 (07:04→08:05)
[2021-09-29] MEDS ORDERED: LIDOCAINE PF 2% 5 ML (XYLOCAINE) VIAL ONE ×2 (07:04→07:06)
[2021-09-29] MEDS ORDERED: proPOfol 200 MG/20 ML (DIPRIVAN) VIAL IV ONE (07:04)
[2021-09-29] MEDS ORDERED: ONDANSETRON 4 MG/2 ML (SDV) Z0FRAN ONE (07:04)
[2021-09-29] MEDS ORDERED: ROPIVACAINE 5MG/ML 30ML VIAL ONE (07:05)
[2021-09-29] MEDS ORDERED: MIDAZOLAM 2 MG/2 ML (VERSED) VIAL ONE (07:05)
[2021-09-29] MEDS ORDERED: HYDROmorphone (DILAUDID) 4 MG TAB PO PRN (07:15)
[2021-09-29] MEDS ORDERED: morphine PF (DURAMORPH) 10 MG/10 ML AMP ONE (07:22)
[2021-09-29] MEDS ORDERED: BUPIVACAINE 0.25% 30 ML (SENSORCAINE) VIAL ONE (07:22)
--- NOTE | 2021-09-29 07:36 | Progress Note-Pre Operative ---
Pre-Operative Progress Note H&P Reviewed The H&P was reviewed, patient examined and no changes noted. Date Seen by Provider: Sep 29, 2021 Time Seen by Provider: 07:20 Date H&P Reviewed: Sep 29, 2021 Time H&P Reviewed: 07:11 Pre-Operative Diagnosis: left SLAP tear DIANE PRABHAKAR MD Sep 29, 2021 07:36
--- NOTE | 2021-09-29 07:37 | Progress Note-Post Operative ---
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
[2021-09-29] MEDS ORDERED: ROCURONIUM 50 MG/5 ML (ZEMURON) VIAL IV ONE (08:05)
--- NOTE | 2021-09-29 08:37 | Anesthesia-General Post-Op ---
General Patient Condition Mental Status/LOC: Same as Preop Cardiovascular: Satisfactory Nausea/Vomiting: Absent Respiratory: Satisfactory Pain: Controlled Complications: Absent Post Op Complications Complications None Follow Up Care/Instructions Patient Instructions None needed. Anesthesia/Patient Condition Patient Condition Patient is doing well, no complaints, stable vital signs, no apparent adverse anesthesia problems. No complications reported per nursing. KAVON REGALADO CRNA Sep 29, 2021 08:37
[2021-09-29] MEDS ORDERED: HYDROmorphone 2 MG/ML VIAL (DILAUDID) ONE (09:10)
[2021-09-29] MEDS ORDERED: fentaNYL INJ 100 MCG/2 ML AMP IVP ONE (09:45)
[2021-09-29] MEDS ORDERED: morphine INJ 10 MG/ML 1ML (SYR OR VIAL) IVP ONE (09:45)
[2021-09-29] MEDS ORDERED: MEPERIDINE (DEMEROL) INJ 50 MG/ML IVP ONE (09:45)
[2021-09-29] MEDS ORDERED: HYDROmorphone 2 MG/ML VIAL (DILAUDID) IV ONE (09:45)
[2021-09-29] MEDS ORDERED: ONDANSETRON 4 MG/2 ML (SDV) Z0FRAN IVP PRN (09:45)
--- NOTE | 2021-09-29 12:49 | OPERATIVE REPORT ---
DATE OF SERVICE: 09/29/2021 PREOPERATIVE DIAGNOSIS: Left shoulder SLAP tear. POSTOPERATIVE DIAGNOSES: 1. Left shoulder SLAP tear. 2. Left shoulder labral tear. 3. 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 4. Left shoulder chondromalacia of the glenoid. PROCEDURES: 1. Left shoulder arthroscopic biceps tenotomy. 2. Left shoulder arthroscopic labral debridement. 3. Left shoulder arthroscopic chondroplasty of the humeral head. 4. Left shoulder arthroscopic chondroplasty of the glenoid. SURGEON: Kiko Prabhakar MD ENGINE MANAGER: Thierry lAberto, who assisted throughout the procedure and closed the incisions. ANESTHESIA: General endotracheal by Thierry Goodwin CRNA. ESTIMATED BLOOD LOSS: Minimal. DRAINS: None. COMPLICATIONS: None. POSTOPERATIVE PLAN: Sling wear for comfort with progressive range of motion as symptoms allow. The patient was transferred to the recovery room awake and in stable condition. STATEMENT OF MEDICAL NECESSITY: The patient is a 55-year-old female with complaints of left shoulder pain, popping and catching. She had pain with overhead activities. She had a positive Slope's maneuver, crepitus with glenohumeral rotation. Due to functional impairment and failure to improve with conservative measures, the patient elected to proceed with surgical intervention. Examination under anesthesia revealed forward elevation of 160 degrees, external rotation of 80 degrees, internal rotation of 70 degrees. Arthroscopic findings, rotator cuff was intact throughout. There was a type 2 SLAP tear. In addition, there was degenerative tearing of the anterior and posterior glenoid over the superior half. The humeral head demonstrated grade III chondral flap centrally in a 20 x 20 area as did the central portion of the glenoid. DESCRIPTION OF PROCEDURE: After risks and benefits of procedure were discussed and questions were answered, informed consent was signed and placed on chart, the operative site was confirmed in the preoperative holding area initialed by the surgeon. The patient was then transferred to the operating room. After adequate levels of general endotracheal anesthetic were obtained, a timeout was called, confirming the operative site and examination under anesthesia was performed with the above findings noted. Left shoulder and upper extremity were prepped and draped in the usual sterile fashion. Shoulder joint was injected with 20 mL fluid. Standard posterior portal was placed under direct visualization. An anterior portal was created in the interval between biceps, subscapularis and glenoid. The biceps anchor was released, the stump was debrided with a shaver. The anterior and posterior labral tears were debrided with shaver back to a stable edge and stable chondral flaps in the humeral head and glenoid were debrided with a shaver back to a stable edge. The shoulder joint was copiously irrigated. Port sites were closed with 4-0 nylon in simple interrupted fashion. Shoulder was injected with Duramorph. Port sites were infiltrated with plain Marcaine and soft dressing and sling were applied and the patient was transferred to the recovery room awake and in stable condition. Job ID: [id number] DocumentID: [id number] Dictated Date: 09/29/2021 08:34:19 Director Radio Date: 09/29/2021 12:48:05 Dictated By: KIKO PRABHAKAR MD
== END 2021-09-29 10:45 ==
LOC: SDC 05:52
PROVIDERS: ATTEND Orthopaedic Surgery
DX: S43.432A Superior glenoid labrum lesion of left shoulder, initial encounter (principal); S43.492A Other sprain of left shoulder joint, initial encounter; M94.212 Chondromalacia, left shoulder; I10 Essential (primary) hypertension; G62.9 Polyneuropathy, unspecified; K21.9 Gastro-esophageal reflux disease without esophagitis; E78.5 Hyperlipidemia, unspecified; E66.01 Morbid (severe) obesity due to excess calories; J45.909 Unspecified asthma, uncomplicated; J44.9 Chronic obstructive pulmonary disease, unspecified; M19.90 Unspecified osteoarthritis, unspecified site; G89.29 Other chronic pain; K58.9 Irritable bowel syndrome, unspecified; F32.A Depression, unspecified; Z90.89 Acquired absence of other organs; Z90.49 Acquired absence of other specified parts of digestive tract; Z68.41 Body mass index [BMI] 40.0-44.9, adult; Z79.899 Other long term (current) drug therapy; Z90.710 Acquired absence of both cervix and uterus; Z98.51 Tubal ligation status; Z79.891 Long term (current) use of opiate analgesic
CPT/HCPCS: 87081

== ENCOUNTER → 2021-11-22 | Outpatient (CLI) | payer MEDICARE ==
--- NOTE | 2021-11-22 11:44 | Diagnostic Imaging Report ---
INDICATION: Abdominal pain with nausea and vomiting. TIME OF EXAM: 11:16 AM FINDINGS: No free air seen. There are surgical clips in right upper quadrant. There is a large stool load in the right colon and portions of the transverse colon. There is mild to moderate stool left colon. No bowel obstruction is seen. There is no pathologic calcifications. IMPRESSION: Large stool lobe particularly in the right colon suggestive of constipation. Dictated by: Dictated on workstation # [id number]
== END ==
LOC: RAD 11:03
PROVIDERS: ATTEND Nurse Practitioner Family
DX: R10.9 Unspecified abdominal pain (principal); R11.2 Nausea with vomiting, unspecified
CPT/HCPCS: 74019

== ENCOUNTER → 2022-11-22 | Outpatient (CLI) | payer MEDICARE ==
[~2022-11-22] MED LIST changes: +ALBU8.5H6 IH; -RT-ALBUINH IH
--- NOTE | 2022-11-22 13:30 | Diagnostic Imaging Report ---
INDICATION: Left calf pain and swelling COMPARISON: None TECHNIQUE: Duplex, davis-scale and color-flow imaging of the left lower extremity venous system was performed. FINDINGS: The common femoral vein, superficial femoral vein, profunda femoris, and popliteal veins are normal. These vessels show normal compressibility, color flow, and doppler augmentation. The deep calf veins, although not very well seen, demonstrate no distinct intraluminal thrombus. IMPRESSION: Negative venous Doppler of the left lower extremity. Dictated by: Dictated on workstation # [id number]
== END ==
LOC: RAD 09:16
PROVIDERS: ATTEND Nurse Practitioner Family
DX: M79.662 Pain in left lower leg (principal); M79.89 Other specified soft tissue disorders

== ENCOUNTER 2023-03-26 13:06 | Emergency (ER) | payer MEDICARE ==
[~2023-03-26] VITALS: Ht 165.1 cm; Wt 104.3 kg
--- NOTE | 2023-03-26 13:29 | ED Headache ---
General Chief Complaint: Head/Cervical Problems Stated Complaint: MIGRAINE Nursing Triage Note: PT AMBULATE TO ROOM 05 WITH C/O MIGRAINE STARTING MONDAY NIGHT. PT REPORTS TAKING AMITRIPTYLINE DAILY AND HAS BEEN TAKING OXYCODONE FOR PAIN WITHOUT RELIEF. PT REPORTS TAKING ZOFRAN FOR NAUSEA WITHOUT RELIEF. PT REPORTS SHE GETS KETAMINE AND PHENERGEN WHEN SHE COMES TO THE ED FOR SYMPTOM RELIEF. Source: patient Exam Limitations: no limitations (OFELIA NIETO APRN) History of Present Illness Date Seen by Provider: Mar 26, 2023 Time Seen by Provider: 13:12 Initial Comments 57-year-old female presents to the ER with a right frontal migraine since 03/24/23. She has a history of migraines, she takes amitriptyline daily and oxycodone as needed. She states that this migraine feels like her normal migraines, it is just lasting longer and she has been unable to alleviate the pain at home. Denies fevers, chest pain, shortness of air. Does report nausea and vomiting. Patient states that when she has come to the ER before for her migraines, Phenergan and ketamine helped. (OFELIA NIETO APRN) Allergies and Home Medications Allergies Coded Allergies: Tetracyclines (Verified Allergy, Unknown, 09/29/21) adhesive tape (Verified Allergy, Unknown, 09/29/21) azithromycin (Verified Allergy, Unknown, 09/29/21) doxycycline (Verified Allergy, Unknown, 09/29/21) duloxetine (Verified Allergy, Unknown, 09/29/21) MENTAL CHANGES niacin (Verified Allergy, Unknown, 09/29/21) Uncoded Allergies: "CYCLINES" (Allergy, Mild, 10/13/09) Patient Home Medication List Home Medication List Reviewed: Yes (OFELIA NIETO APRN) Amitriptyline HCl (Amitriptyline HCl) 25 Mg Tablet, 75 MG PO HS, (Reported) Entered as Reported by: MELONIE ODOM on 07/01/15 1601 Atorvastatin Calcium (Atorvastatin Calcium) 20 Mg Tablet, 20 MG PO HS, (Reported) Entered as Reported by: AIRAM HERBERT on 05/10/19 1637 Citalopram Hydrobromide (Citalopram HBr) 40 Mg Tablet, 40 MG PO HS, (Reported) Entered as Reported by: AIRAM HERBERT on 05/10/19 1637 Cyanocobalamin (Cyanocobalamin Injection) 1,000 Mcg/Ml Inj, 1,000 MCG IM MONTHLY, (Reported) Entered as Reported by: ARNOLD MICHAEL on 09/22/21 0958 Hydrochlorothiazide (Hydrochlorothiazide) 25 Mg Tablet, 25 MG PO DAILY, (Reported) Entered as Reported by: MELONIE ODOM on 07/01/15 1601 Losartan Potassium (Losartan Potassium) 25 Mg Tablet, 25 MG PO DAILY, (Reported) Entered as Reported by: ARNOLD MICHAEL on 09/22/21 0958 Methotrexate Sodium (Methotrexate) 2.5 Mg Tablet, 15 MG PO WEEK, (Reported) Entered as Reported by: AIRAM HERBERT on 05/10/19 1637 Metoprolol Succinate (Metoprolol Succinate) 50 Mg Tab.er.24h, 50 MG PO BID, (Reported) Entered as Reported by: MELONIE ODOM on 07/01/15 1601 Ondansetron (Ondansetron Odt) 4 Mg Tab.rapdis, 4 MG PO Q6H PRN for NAUSEA/VOMITING Prescribed by: ANIBAL RODRIGUEZ on 05/22/20 0340 Pantoprazole Sodium (Pantoprazole Sodium) 20 Mg Tablet.dr, 20 MG PO BID Prescribed by: ANIBAL RODRIGUEZ on 08/25/19 0954 Pantoprazole Sodium (Pantoprazole Sodium) 20 Mg Tablet.dr, 20 MG PO DAILY, (Reported) Entered as Reported by: ARNOLD MICHAEL on 09/22/21 0958 Review of Systems Review of Systems Constitutional: see HPI (OFELIA NIETO APRN) Past Eluracm-Zptnxv-Iusvvq Hx Patient Social History Tobacco Use?: No Smoking Status: Never a Smoker Smokeless Tobacco Frequency: Never a User Use of E-Cig and/or Vaping dev: No Use of E-Cig and/or Vaping Jose A: Never a User Substance use?: No Alcohol Use?: No Pt feels they are or have been: No (OFELIA NIETO APRN) Immunizations Up To Date Tetanus Booster (TDap): Unknown First/Initial COVID19 Vaccinat: 2020 Second COVID19 Vaccination Nikhil: 2020 (OFELIA NIETO APRN) Seasonal Allergies Seasonal Allergies: Yes (OFELIA NIETO APRN) Past Medical History Surgeries: Yes (SPINAL LIPOMAS REMOVED, ABD ADHESIONS, ABDOMINAL NECROTIC TISSUE DEBRIDED ) Abdominal, Appendectomy, Section, Ear Surgery, Gallbladder, Hysterectomy, Oophorectomy, Orthopedic, Tubal Ligation Respiratory: Yes (NO INHALER USE IN 3-4 YEARS) Asthma, Chronic Bronchitis Currently Using CPAP: No Currently Using BIPAP: No Cardiac: Yes Hypertension Neurological: Yes Headaches /Migraines 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 Disorders: No Female 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 Disorders: Denies 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 Sexually Transmitted Disease: No HIV/AIDS: No Genitourinary: Yes Kidney Infection Gastrointestinal: Yes Abdominal Hernia, Gastroesophageal Reflux, Chronic Diarrhea, Ulcer, Irritable Bowel Musculoskeletal: Yes (BUNIONECTOMY,HAMMER TOE REPAIR, L KNEE;TORN R ROTATOR CUFF) Arthritis, Chronic Back Pain Endocrine: Yes (OBESITY) Diabetes, Non-Insulin dep HEENT: No (GLASSES) Loss of Vision: Denies Hearing Impairment: Denies Cancer: No Psychosocial: Yes Anxiety, Depression Integumentary: Yes (pyodermic gangrenosum, 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) Blood Disorders: Yes (monoclonal gammopathy) Adverse Reaction/Blood Tranf: No (N/A) (OFELIA NIETO APRN) Family Medical History Cancer 19 FATHER, (PROSTATE CANCER) Family history: Diabetes mellitus G8 BROTHER Hearing loss G8 SISTER Heart disease 19 MOTHER (STENTS) Heart Disease, Cancer, Diabetes, Hypertension (OFELIA NIETO APRN) Physical Exam Vital Signs Vital Signs - First Documented 03/26/23 03/26/23 13:13 16:20 Temp 35.5 Pulse 77 Resp 17 B/P (MAP) 125/73 (90) Pulse Ox 97 O2 Delivery Room Air (ZAC ENCINAS MD) Vital Signs Capillary Refill : Less Than 3 Seconds (OFELIA NIETO APRN) Height, Weight, BMI Height: 5'5.00" Weight: 216lbs. 0.0oz. 97.858095lb; 38.00 BMI Method:Stated General Appearance: WD/WN, mild distress HEENT: PERRL/EOMI, TMs normal Neck: full range of motion, supple, normal inspection Cardiovascular: regular rate, rhythm Respiratory: lungs clear, normal breath sounds, no respiratory distress, no accessory muscle use Extremities: normal range of motion, normal inspection Crainal Nerves: normal hearing, normal speech, PERRL Motor/Sensory: no motor deficit, no sensory deficit Skin: normal color, warm/dry (OFELIA NIETO APRN) Progress/Results/Core Measures Results/Orders Vital Signs/I&O 03/26/23 03/26/23 13:13 16:20 Temp 35.5 Pulse 77 63 Resp 17 14 B/P (MAP) 125/73 (90) 116/71 Pulse Ox 97 O2 Delivery Room Air 03/27/23 00:00 Intake Total 1250 ml Balance 1250 ml (ZAC ENCINAS MD) Blood Pressure Mean: 90 Progress Progress Note : Progress Note Patient seen and evaluated, sitting in bed, mild distress. Based on exam and symptoms, this appears to be migraine headache. This is not the worst headache of her life, consider CT head, but deferred due to patient reporting that the migraine feels the same as always. Will start with Toradol, Phenergan, and IV fluids. 1430 patient reports improvement in nausea, denies improvement in pain. Dexamethasone and fentanyl ordered. 1515 patient still reports no improvement in pain. Ketamine ordered. 1608 patient reports significant improvement in pain. Patient states she is ready to go home. Discharge instructions and return precautions provided. (OFELIA NIETO APRN) Departure Impression Primary Impression: Migraine Disposition: 01 HOME, SELF-CARE Condition: Stable Departure-Patient Inst. Decision time for Depature: 16:08 (OFELIA NIETO APRN) Referrals: JUAN DAVID WELSH MD (PCP/Family) Primary Care Physician Patient Instructions: Migraines (DC) Add. Discharge Instructions: Follow-up with your primary care provider, you should have your vitamin D level checked. Acupuncture might also be an option for you which can relieve pain. Continue your medications as prescribed. Return for severe headache, vision changes, recurrent vomiting, difficulty with normal activities, abnormal behavior, difficulty walking, numbness, weakness, or any other new, concerning, or worsening symptoms. All discharge instructions reviewed with patient and/or family. Voiced understanding. ATTENDING PHYSICIAN NOTE: I was physically present as attending physician in the emergency department during the care of this patient. I discussed treatment options with Ofelia Nieto NP. I did not personally interview or examine this patient. I was not otherwise directly involved in the decision making or delivery of care for this patient. (ZAC ENCINAS MD) OFELIA NIETO APRN Mar 26, 2023 13:28 ZAC ENCINAS MD Mar 27, 2023 07:11
[2023-03-26] MEDS ORDERED: PROMETHAZINE INJ 25 MG/ML (PHENERGAN) AMP IVP ONE (13:45)
[2023-03-26] MEDS ORDERED: NS IV 1000 ML 1,000 ML IV SCH (13:45)
[2023-03-26] MEDS ORDERED: KETOROLAC 30 MG/ML VIAL IVP ONE (13:45)
[2023-03-26] MEDS ORDERED: dexAMETHasone INJ 4 MG/ML SDV IV ONE (14:30)
[2023-03-26] MEDS ORDERED: fentaNYL INJ 100 MCG/2 ML AMP IVP ONE (14:30)
[2023-03-26] MEDS ORDERED: NS (IVPB) 250 ML 250 ML IV ONE (15:15)
[2023-03-26] MEDS ORDERED: KETAMINE 50 MG/5 ML SYRINGE IV ONE (15:15)
[2023-03-26 16:20] VITALS: BP 116/71
== END 2023-03-26 16:21 | disposition home or self-care (01) ==
LOC: EDUNIT# 13:06 → ER 13:08
DX: G43.909 Migraine, unspecified, not intractable, without status migrainosus (principal); E66.9 Obesity, unspecified; Z68.38 Body mass index [BMI] 38.0-38.9, adult; Z28.310 Unvaccinated for COVID-19; Z79.899 Other long term (current) drug therapy

== ENCOUNTER 2023-06-05 12:19 | Emergency (ER) | payer MEDICARE ==
[~2023-06-05] VITALS: Ht 165 cm; Wt 99.0 kg
--- NOTE | 2023-06-05 12:46 | ED Lower Extremity ---
General Chief Complaint: Lower Extremity Stated Complaint: RT FOOT INJ | FALL Nursing Triage Note: PT STATES SHE FELL AND HURT RT FOOT, HAPPENED THIS MORNING, DENIES HEAD OR NECK INJURY, TRIPPED OVER DOG Source: patient Exam Limitations: no limitations (MATTHIAS CARABALLO) History of Present Illness Date Seen by Provider: Jun 05, 2023 Time Seen by Provider: 12:44 Initial Comments Patient is a 57-year-old female presents ED with right dorsum foot pain. She states 1 hour ago she tripped on her friends dog. She landed on her left side denies hitting her head or loss of consciousness. She states the barstool landed on her right foot and she is complaining of right dorsal foot pain. Pain is worse with walking. She noted some swelling without bruising. Denies of any numbness and tingling, obvious bone deformity. She denies taking thing for pain. No history of previous fracture. She is able to ambulate with some difficulties. She did land on her left side but denies of any left hip pain, left leg pain, headache, dizziness, chest pain, shortness of breath, neck pain, middle lower back pain. (MATTHIAS CARABALLO) Allergies and Home Medications Allergies Coded Allergies: Tetracyclines (Verified Allergy, Unknown, 09/29/21) adhesive tape (Verified Allergy, Unknown, 09/29/21) azithromycin (Verified Allergy, Unknown, 09/29/21) doxycycline (Verified Allergy, Unknown, 09/29/21) duloxetine (Verified Allergy, Unknown, 09/29/21) MENTAL CHANGES niacin (Verified Allergy, Unknown, 09/29/21) Uncoded Allergies: "CYCLINES" (Allergy, Mild, 10/13/09) Patient Home Medication List Home Medication List Reviewed: Yes (MATTHIAS CARABALLO) Amitriptyline HCl (Amitriptyline HCl) 25 Mg Tablet, 75 MG PO HS, (Reported) Entered as Reported by: MELONIE ODOM on 07/01/15 1601 Atorvastatin Calcium (Atorvastatin Calcium) 20 Mg Tablet, 20 MG PO HS, (Reported) Entered as Reported by: AIRAM HERBERT on 05/10/19 1637 Citalopram Hydrobromide (Citalopram HBr) 40 Mg Tablet, 40 MG PO HS, (Reported) Entered as Reported by: AIRAM HERBERT on 05/10/19 1637 Cyanocobalamin (Cyanocobalamin Injection) 1,000 Mcg/Ml Inj, 1,000 MCG IM MONTHLY, (Reported) Entered as Reported by: ARNOLD MICHAEL on 09/22/21 0958 Hydrochlorothiazide (Hydrochlorothiazide) 25 Mg Tablet, 25 MG PO DAILY, (Reported) Entered as Reported by: MELONIE ODOM on 07/01/15 1601 Hydrocodone/Acetaminophen (Hydrocodone-Acetamin 5-325 mg) 5 Mg-325 Mg Tablet, 1 TAB PO Q4H PRN for PAIN-MODERATE (5-7) Prescribed by: LIZET CUMMINGS on 06/05/23 1325 Losartan Potassium (Losartan Potassium) 25 Mg Tablet, 25 MG PO DAILY, (Reported) Entered as Reported by: ARNOLD MICHAEL on 09/22/21 0958 Methotrexate Sodium (Methotrexate) 2.5 Mg Tablet, 15 MG PO WEEK, (Reported) Entered as Reported by: AIRAM HERBERT on 05/10/19 1637 Metoprolol Succinate (Metoprolol Succinate) 50 Mg Tab.er.24h, 50 MG PO BID, (Reported) Entered as Reported by: MELONIE ODOM on 07/01/15 1601 Ondansetron (Ondansetron Odt) 4 Mg Tab.rapdis, 4 MG PO Q6H PRN for NAUS EA/VOMITING Prescribed by: ANIBAL RODRIGUEZ on 05/22/20 0340 Pantoprazole Sodium (Pantoprazole Sodium) 20 Mg Tablet.dr, 20 MG PO BID Prescribed by: ANIBAL RODRIGUEZ on 08/25/19 0954 Pantoprazole Sodium (Pantoprazole Sodium) 20 Mg Tablet.dr, 20 MG PO DAILY, (Reported) Entered as Reported by: ARNOLD MICHAEL on 09/22/21 0958 Review of Systems Constitutional: No chills, No diaphoresis, No malaise, No weakness EENTM: No hearing loss, No ear pain, No blurred vision Respiratory: No cough, No dyspnea on exertion Cardiovascular: No chest pain Gastrointestinal: No abdominal pain, No diarrhea, No nausea, No vomiting Genitourinary: No decreased output, No discharge Musculoskeletal: No back pain; joint pain, joint swelling, muscle pain Skin: No change in color (MATTHIAS CARABALLO) All Other Systems Reviewed Negative Unless Noted: Yes (MATTHIAS CARABALLO) Past Wvvilxp-Etnxoh-Qhkmli Hx Immunizations Up To Date Tetanus Booster (TDap): Unknown First/Initial COVID19 Vaccinat: 2020 Second COVID19 Vaccination Nikhil: 2020 (MATTHIAS CARABALLO) Seasonal Allergies Seasonal Allergies: Yes (MATTHIAS CARABALLO) Past Medical History Surgeries: Yes (SPINAL LIPOMAS REMOVED, ABD ADHESIONS, ABDOMINAL NECROTIC TISSUE DEBRIDED ) Abdominal, Appendectomy, Section, Ear Surgery, Gallbladder, Hysterectomy, Oophorectomy, Orthopedic, Tubal Ligation Respiratory: Yes (NO INHALER USE IN 3-4 YEARS) Asthma, Chronic Bronchitis Currently Using CPAP: No Currently Using BIPAP: No Cardiac: Yes Hypertension Neurological: Yes Headaches /Migraines 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 Disorders: No Female 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 Disorders: Denies 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 Sexually Transmitted Disease: No HIV/AIDS: No Genitourinary: Yes Kidney Infection Gastrointestinal: Yes Abdominal Hernia, Gastroesophageal Reflux, Chronic Diarrhea, Ulcer, Irritable Bowel Musculoskeletal: Yes (BUNIONECTOMY,HAMMER TOE REPAIR, L KNEE;TORN R ROTATOR CUFF) Arthritis, Chronic Back Pain Endocrine: Yes (OBESITY) Diabetes, Non-Insulin dep HEENT: No (GLASSES) Loss of Vision: Denies Hearing Impairment: Denies Cancer: No Psychosocial: Yes Anxiety, Depression Integumentary: Yes (pyodermic gangrenosum, 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) Blood Disorders: Yes (monoclonal gammopathy) Adverse Reaction/Blood Tranf: No (N/A) (MATTHIAS CARABALLO) Family Medical History Cancer 19 FATHER, (PROSTATE CANCER) Family history: Diabetes mellitus G8 BROTHER Hearing loss G8 SISTER Heart disease 19 MOTHER (STENTS) Heart Disease, Cancer, Diabetes, Hypertension (MATTHIAS CARABALLO) Physical Exam Vital Signs Vital Signs - First Documented 06/05/23 12:37 Temp 37.4 Pulse 104 Resp 20 B/P (MAP) 118/79 (92) Pulse Ox 96 O2 Delivery Room Air (ZAC ENCINAS MD) Vital Signs Capillary Refill : Less Than 3 Seconds (MATTHIAS CARABALLO) Height, Weight, BMI Height: 5'5.00" Weight: 216lbs. 0.0oz. 97.171003qu; 36.00 BMI Method:Stated General Appearance: WD/WN, no apparent distress HEENT: PERRL/EOMI, normal ENT inspection, TMs normal, pharynx normal Neck: non-tender, full range of motion, supple Cardiovascular: regular rate, rhythm, no edema, no gallop, no JVD Respiratory: chest non-tender, lungs clear, normal breath sounds, no respiratory distress, no accessory muscle use Gastrointestinal: normal bowel sounds, non tender, soft, no organomegaly Back: normal inspection, no CVA tenderness Hips: bilateral hip non-tender, bilateral hip normal inspection, bilateral hip normal range of motion Knees: bilateral knee non-tender, bilateral knee normal inspection, bilateral knee normal range of motion Ankles: bilateral ankle non-tender, bilateral ankle normal inspection, fahad ateral ankle normal range of motion, bilateral ankle no evidence of injury Feet: right foot other (Right dorsum first metatarsal tenderness. No bruising or swelling. Normal active range of motion the digits. Neurovascular intact. 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 She is able to bear weight. Tenderness along the dorsum foot. No ankle tenderness. Neurovascular intact. No evidence of bone deformity. She received 1 dose of pain medication. X-ray was obtained which did not note any acute fracture. She is able to bear weight. Bear weight as tolerated. Ice anti-inflammatories. Orthopedic follow-up in 7 to 10 days if pain progress. She did land on her left side denies hitting her head or loss of conscious. She has no hip, abdomen or chest wall tenderness. She has no cervical, thoracic or lumbar midline tenderness. No focal neural deficits. If any worsening symptoms return back to ED for further evaluation. No further imaging at this time. (MATTHIAS CARABALLO) Impression Primary Impression: Foot sprain Disposition: HOME, SELF-CARE Condition: Stable Departure-Patient Inst. Decision time for Depature: 13:24 (MATTHIAS CARABALLO) Referrals: JUAN DAVID WELSH MD (PCP/Family) Primary Care Physician RANDI DAVIDSON MD Patient Instructions: Foot Sprain (DC) Add. Discharge Instructions: Recommend anti-inflammatories, hydrocodone as needed and rest. Orthopedic follow-up in 7 to 10 days if pain progress. Bear weight as tolerated All discharge instructions reviewed with patient and/or family. Voiced understanding. Scripts Hydrocodone/Acetaminophen (Hydrocodone-Acetamin 5-325 mg) 5 Mg-325 Mg Tablet 1 TAB PO Q4H PRN for PAIN-MODERATE (5-7), #6 TAB Prov: MATTHIAS CARABALLO 06/05/23 ATTENDING PHYSICIAN NOTE: I was physically present as attending physician in the emergency department during the care of this patient, but I was not directly involved in the decision making or delivery of care for this patient. (ZAC ENCINAS MD) MATTHIAS CARABALLO Jun 05, 2023 12:46 ZAC ENCINAS MD Jun 06, 2023 06:41
--- NOTE | 2023-06-05 13:18 | Diagnostic Imaging Report ---
EXAMINATION: Right foot radiographs, 3 views. COMPARISON: None. HISTORY: 57-year-old female, right foot pain. FINDINGS: There is metallic wire at the level of the first proximal phalanx, consistent with prior procedural related changes at this site. There is degenerative type enthesopathy at the Achilles tendon insertion. There is a bipartite medial sesamoid. There is no identified acute fracture. There is no cortical or aggressive bone destruction. There is a long-standing well-corticated ossification near the proximal aspect of the dorsal navicular. IMPRESSION: No identified acute bony abnormality of the right foot. Dictated by: Dictated on workstation # [id number]
[2023-06-05] MEDS ORDERED: ACHD5005 PO (13:24)
[2023-06-05] MEDS ORDERED: HYDROcodone/ACETAMINOPHEN 5 MG/325 MG TABLET PO ONE (13:30)
[2023-06-05 13:38] VITALS: BP 118/79
== END 2023-06-05 13:38 | disposition home or self-care (01) ==
LOC: EDUNIT# 12:19 → ER 12:21
DX: S93.601A Unspecified sprain of right foot, initial encounter (principal); E66.9 Obesity, unspecified; Z68.36 Body mass index [BMI] 36.0-36.9, adult; W01.0XXA Fall on same level from slipping, tripping and stumbling without subsequent striking against object, initial encounter
CPT/HCPCS: 73630

== ENCOUNTER → 2023-06-07 | Outpatient (CLI) | payer MEDICARE ==
--- NOTE | 2023-06-07 14:34 | Diagnostic Imaging Report ---
EXAMINATION: US Abdomen complete. TECHNIQUE: Multiple real-time grayscale images were obtained over the right upper quadrant in various projections. HISTORY: ELEVATED LIVER ENZYMES, HEMATURIA COMPARISON: None available. FINDINGS: Pancreas: The visualized portions of the pancreas are normal. Liver: The liver is normal in echogenicity and contour. No focal lesions are seen. The portal vein is patent with hepatopetal flow. Gallbladder and biliary tree: The gallbladder is surgically absent. There is no biliary ductal dilation. The common duct measures 0.5 cm. Kidneys: The right kidney is normal without hydronephrosis. The left kidney is normal without hydronephrosis. A 2.3 cm simple appearing left renal cyst is present which requires no followup. Spleen: There are multiple calcifications within the spleen. Aorta and IVC: The visualized aorta and inferior vena cava are normal. Fluid: No ascites is seen. IMPRESSION: 1. Unremarkable abdominal ultrasound. Dictated by: Dictated on workstation # [id number]
== END ==
LOC: RAD 10:37
PROVIDERS: ATTEND Nurse Practitioner Family
DX: R74.8 Abnormal levels of other serum enzymes (principal); R31.9 Hematuria, unspecified; R80.9 Proteinuria, unspecified
CPT/HCPCS: 76700